=== PATIENT | male | born 1965 | race Caucasian/White ===

== ENCOUNTER 2017-01-09 10:53 | Emergency (ER) | payer OTHER ==
[~2017-01-09] VITALS: Ht 172.7 cm; Wt 67.6 kg
[~2017-01-09 10:53] MED LIST: DICY20TA11 PO; DRIS50002 PO; FISH100049 PO; GLUC1CAP9 PO; IRON65TA PO; LISI40TAB PO; METO50TA2 PO; OMEP40CA2 PO; SIMV40TA2 PO
[2017-01-09] MEDS ORDERED: BUSP10TA PO (11:23)
[2017-01-09] MEDS ORDERED: BUPR15TA PO (11:23)
[2017-01-09] MEDS ORDERED: GEMF600T PO (11:23)
--- NOTE | 2017-01-09 12:24 | REP ---
LEFT FOOT SERIES: Two views. HISTORY: Heel pain. No known injury. FINDINGS: There is some fragmented Achilles calcaneal spurring visible on lateral radiograph. No erosive change is seen. Bones joints and soft tissues are otherwise unremarkable. IMPRESSION: Achilles heel spurring. Otherwise negative. Signed by Theo Buenrostro MD 01/09/2017 12:50 P
[2017-01-09] MEDS ORDERED: INDO50CA PO (12:26)
[2017-01-09 12:32] VITALS: BP 132/75
== END 2017-01-09 12:42 | disposition home or self-care (01) ==
LOC: M ED 11:36
DX: M77.32 Calcaneal spur, left foot (principal); M65.272 Calcific tendinitis, left ankle and foot; Z88.8 Allergy status to other drugs, medicaments and biological substances; Z79.899 Other long term (current) drug therapy; J44.9 Chronic obstructive pulmonary disease, unspecified

== ENCOUNTER 2017-01-13 21:56 | Inpatient (IN) | payer OTHER ==
[~2017-01-13] VITALS: Ht 172.7 cm; Wt 68.0 kg
[~2017-01-13 21:56] MED LIST changes: +BUPR15TA PO; +BUSP10TA PO; +GEMF600T PO; +INDO50CA PO
[2017-01-13 23:34] LABS: BASO % 0.5 % (0.0-1.0); EOS # 0.1 K/mm3 (0.0-0.50); EOS % 2.9 % (0.0-3.0); LARGE UNSTAINED CELL # 0.1 K/mm3 (0.0-0.4); LARGE UNSTAINED CELL % 2.7 % (0.0-4.0); LYMPH # 1.4 K/mm3 (1.5-4.5); LYMPH % 27.9 % (24.0-44.0); MONO # 0.3 K/mm3 (0.0-0.8); MONO % 6.6 % (0.0-5.0); NEUTROPHILS # 2.7 K/mm3 (1.8-7.7); NEUTROPHILS % 59.4 % (36.0-66.0); PLATELET COUNT, AUTOMATED 201 k/mm3 (150-450); RED CELL DISTRIBUTION WIDTH 16.4 % (11.5-14.5); WHITE BLOOD COUNT 4.6 K/mm3 (4.0-10.0)
[2017-01-13 23:40] LABS: INR 0.97
[2017-01-13 23:47] LABS: ANION GAP 11 MEQ/L (8-16); BLOOD UREA NITROGEN 21 MG/DL (7-18); CALCIUM LEVEL 9.1 MG/DL (8.5-10.1); CARBON DIOXIDE LEVEL 24 MEQ/L (21-32); CHLORIDE LEVEL 106 MEQ/L (98-107); CREATININE FOR GFR 0.92 MG/DL (0.70-1.30); GLOMERULAR FILTRATION RATE > 60.0 (>56); GLUCOSE, FASTING 90 MG/DL (70-105); POTASSIUM SERUM 4.1 MEQ/L (3.5-5.1); SODIUM LEVEL 141 MEQ/L (136-145)
[2017-01-14 00:23] LABS: RETIC HEMOGLOBIN CONTENT CHr 38.2 PG (24-36); RETICULOCYTE ABSOLUTE ADVIA212 114 x10(9)/L (17-77)
[2017-01-14 00:35] LABS: ALBUMIN 3.9 GM/DL (3.2-5.2); ALKALINE PHOSPHATASE 66 U/L (45-117); ALT/SGPT 24 U/L (12-78); AST/SGOT 21 U/L (15-37); BILIRUBIN,DIRECT 0.1 MG/DL (0.0-0.2); BILIRUBIN,TOTAL 0.5 MG/DL (0.2-1.0); FERRITIN 786 NG/ML (26-388); PERCENT SATURATION 23.6 % (19.7-37.4); TOTAL IRON BINDING CAPACITY 377 UG/DL (250-450); TOTAL PROTEIN 6.9 GM/DL (6.4-8.2)
[2017-01-14] MEDS: PANTOPRAZOLE 40MG INJ (PROTONIX) (C9113) IV SCH ×2 (01:00→09:41)
[2017-01-14] MEDS: NS 1,000 ML IV SCH ×2 (01:00→06:13)
[2017-01-14] MEDS: SUCRALFATE 1 GM TAB PO SCH ×2 (01:00→06:13)
[2017-01-14] MEDS ORDERED: SUCRALFATE 1 GM TAB As Ordered ONE (01:10)
[2017-01-14] MEDS ORDERED: PANTOPRAZOLE 40MG INJ (PROTONIX) (C9113) As Ordered ONE (01:10)
[2017-01-14 02:45] VITALS: BP 113/66
[2017-01-14] MEDS ORDERED: LISI40TAB PO (04:14)
[2017-01-14] MEDS ORDERED: LORazepam 2 MG TAB PO PRN (04:15)
[2017-01-14] MEDS ORDERED: INDO50CA PO (04:18)
[2017-01-14] MEDS ORDERED: OXAZEPAM 10 MG CAP PO SCH (06:00)
[2017-01-14] MEDS ORDERED: OXAZEPAM 10 MG CAP PO PRN (07:00)
[2017-01-14] MEDS ORDERED: ACETAMINOPHEN TAB 650MG DOSE (2X325MG) PO PRN (07:00)
[2017-01-14] MEDS ORDERED: NS 500 ML IV ONE (07:00)
[2017-01-14 07:48] LABS: ANION GAP 9 MEQ/L (8-16); BLOOD UREA NITROGEN 16 MG/DL (7-18); CALCIUM LEVEL 8.7 MG/DL (8.5-10.1); CARBON DIOXIDE LEVEL 24 MEQ/L (21-32); CHLORIDE LEVEL 109 MEQ/L (98-107); CREATININE FOR GFR 0.69 MG/DL (0.70-1.30); GLOMERULAR FILTRATION RATE > 60.0 (>56); GLUCOSE, FASTING 93 MG/DL (70-105); POTASSIUM SERUM 4.2 MEQ/L (3.5-5.1); SODIUM LEVEL 142 MEQ/L (136-145)
[2017-01-14 07:51] LABS: BASO % 0.6 % (0.0-1.0); EOS # 0.2 K/mm3 (0.0-0.50); EOS % 3.3 % (0.0-3.0); LARGE UNSTAINED CELL # 0.1 K/mm3 (0.0-0.4); LARGE UNSTAINED CELL % 2.6 % (0.0-4.0); LYMPH # 1.5 K/mm3 (1.5-4.5); LYMPH % 29.2 % (24.0-44.0); MEAN CORPUSCULAR HEMOGLOBIN 35.4 pg (27.0-33.0); MEAN CORPUSCULAR HGB CONC 35.2 g/dl (32.0-36.5); MEAN CORPUSCULAR VOLUME 100.5 fl (80.0-96.0); MONO # 0.4 K/mm3 (0.0-0.8); MONO % 8.2 % (0.0-5.0); NEUTROPHILS # 2.8 K/mm3 (1.8-7.7); NEUTROPHILS % 56.1 % (36.0-66.0); PLATELET COUNT, AUTOMATED 188 k/mm3 (150-450); RED CELL DISTRIBUTION WIDTH 16.5 % (11.5-14.5)
[2017-01-14 08:00] VITALS: BP_SYST 113; BP_SYST 146; BP_DIAS 66; BP_DIAS 79
[2017-01-14] MEDS ORDERED: buPROPion **SR TABLET** (ZYBAN) 150MG PO SCH (09:00)
[2017-01-14] MEDS ORDERED: GEMFIBROZIL 600 MG TAB PO SCH (09:00)
[2017-01-14] MEDS ORDERED: THIAMINE 100 MG TAB PO SCH (09:00)
[2017-01-14] MEDS ORDERED: FERROUS SULFATE 325MG TAB PO SCH (09:00)
[2017-01-14] MEDS ORDERED: VITAMIN D 50,000 UNITS CAPSULE (ERGOCALCIFEROL 1.25MG) PO SCH (09:00)
[2017-01-14] MEDS ORDERED: FOLIC ACID 1 MG TAB PO SCH (09:00)
[2017-01-14] MEDS ORDERED: busPIRone 10 MG TAB PO SCH (09:00)
[2017-01-14] MEDS ORDERED: CYANOCOBALAMIN 500 MCG TAB PO SCH (09:00)
[2017-01-14] MEDS ORDERED: MULTIVITAMINS/MINERALS THERAP 1 TAB PO SCH (09:00)
[2017-01-14] MEDS ORDERED: METOPROLOL TART 12.5 MG PER 1/2 TAB PO SCH (09:00)
[2017-01-14 09:16] LABS: VITAMIN B12 LEVEL 358 PG/ML (247-911)
[2017-01-14 09:17] LABS: FOLATE 10.2 NG/ML (>5.4)
[2017-01-14 10:00] VITALS: BP 130/73
[2017-01-14 10:05] VITALS: BP 136/73
[2017-01-14 10:10] VITALS: BP 128/77
[2017-01-14 12:00] VITALS: BP 143/75
--- NOTE | 2017-01-15 09:35 | ED PDOC ---
Post-Departure Follow-Up This record was partially or completely completed on paper due to EMR downtime. Please see scanned documents. Bre Yao MD Jan 15, 2017 09:35
--- NOTE | 2017-01-15 12:24 | HPE ---
DATE OF ADMISSION: 01/14/2017 ADMITTING PHYSICIAN: Dr. Jadon Vidal CHIEF COMPLAINT: Blood in stool. HISTORY OF PRESENT ILLNESS: Mr. Salas is a 51-year-old male who presents the emergency department complaining of blood in his stool. He states that he has been complaining of a left heel bone spur and Achilles tendonitis for which he was prescribed indomethacin last Thursday. He states that he has been taking the medication as prescribed and then he noticed that he began to see blood in his toilet this morning. He does suffer from chronic diarrhea for which he has had multiple investigations including and upper and lower scope per Dr. Weber, therefore he began the blood mixed in with his diarrhea which has been present all day. He continues to have blood in his stool even when he is in the emergency department at this time. Other than this, he does not complain of any other symptoms. Specifically, he denies any shortness of breath, fatigue, orthostasis, claudication, palpitations, chest pressure or discomfort. He does admit to some mild transient abdominal pain. Occasionally when one provider will poke on his belly it will be tender; however, within the next 15-20 minutes this pain will go away. On my exam. He currently does not have any abdominal pain at this time. He denies any hematemesis or blood in sputum. He has no cough. He does not have epistaxis. He does state that in the past year he has been unable to take aspirin or fish oil as this will cause him to bruise very easily, even the slightest bump will make a bruise, but he denies ever having any blood in his urine or stool in the past. Of note, he does imbibe alcohol on a daily basis approximately 6-8 beers currently, although a couple years ago he used to drink almost 16-18 beers per day as well. He is also accompanied in the room by his daughter who provides some of the history. ALLERGIES: MELOXICAM and ALBUTEROL. PAST MEDICAL HISTORY: Hypertension, hypertriglyceridemia, chronic obstructive pulmonary disease (COPD) . He thinks he perhaps has obstructive sleep apnea but has never been diagnosed. gastroesophageal reflux disease (GERD), chronic diarrhea for which he has had multiple interventions with the ramp attendant and court abstractor. Hemorrhoids , degenerative disk disease in his entire spine, chronic back pain, chronic muscle pain, history of remote right ankle fracture. He states that he is a carrier for hemochromatosis. He does suffer from chronic anemia, anxiety, depression. SOCIAL HISTORY: He quit smoking approximately six years ago. As noted in the history of present illness (HPI), he drinks about 6-8 beers per day. However, just a couple years ago he was drinking 16-18 beers a day, therefore this is an improvement. He does admit to using marijuana on occasion; however, denies any other recreational or illicit drug use. PAST SURGICAL HISTORY: He has had two hernia operations, one as an , the other in the early . He did have his tonsils removed as a child. FAMILY HISTORY: His father suffered from diabetes mellitus type 2, hypertension, and from complications of the same at an age greater than 60, but he is not sure at what age. His mother in her 50s from a brain tumor; she also had breast cancer. He does have a half-sister and four daughters all of whom appear to be healthy. MEDICATION LIST: - bupropion 150 mg by mouth twice a day at 0600 at 0900 - buspirone 10 mg by mouth daily - gemfibrozil 600 mg by mouth twice a day - indomethacin (started approximately 3-4 days ago) 50 mg by mouth every eight hours as needed for left heel pain - iron 325 mg by mouth twice a day - lisinopril 40 mg by mouth daily - metoprolol tartrate 25 mg by mouth twice a day - omeprazole 40 mg by mouth daily - vitamin D 50,000 units one tablet by mouth twice a week on Sundays and Wednesdays - Optivar ophthalmic solution two drops both eyes four times a day as needed dry eye - vitamin B12 2000 mcg by mouth daily REVIEW OF SYSTEMS: CONSTITUTIONAL: The patient as any fevers, chills, night sweats, recent weight gain or weight loss. HEENT: Denies any changes in his vision or hearing. He does feel dry and thirsty, he has no difficulty swallowing, chewing or swallowing any foods. He denies having any epistaxis or lymphadenopathy. PULMONARY: Denies having any cough, dyspnea or wheeze. CARDIOVASCULAR: Denies any chest pain, palpitations, orthopnea, paroxysmal nocturnal dyspnea, swelling in the feet or legs or claudication. GASTROINTESTINAL: He denies any nausea or vomiting. He does admit to chronic constant diarrhea for which he has had many investigations without any solid etiology. He denies constipation. He does admit to bloody bowel movements as described in the HPI. He denies any hematochezia or hemoptysis. GENITOURINARY: He denies any frequency, urgency or dysuria and denies seeing any blood the urine. HEMATOLOGIC: Currently he denies any bruising or bleeding easily; however, he states that he is not able to take aspirin or fish oil as this will cause him to have easy bruising. He has not noticed any petechiae or purpura. ENDOCRINE: Denies polydipsia, polyphagia, polyuria. MUSCULOSKELETAL: He does admit to chronic back pain and muscle pains, but no new complaints. NEUROLOGICAL: He does complain of some slight tingling in his left ulnar distribution; otherwise, he denies any muscle strength weakness or any other kind of paresthesias or difficulty with speech or word finding. He has not noticed any facial droop. PSYCHIATRIC: He does admit to a history of anxiety and depression, although he is currently feeling well at this time. PHYSICAL EXAMINATION: VITALS: Temperature 98.2, pulse 101 regular, respiratory rate 18 and unlabored. Blood pressure is 176/79. Pulse oximetry is 100% on room air. HEENT: Head is normocephalic, atraumatic. Pupils equally reactive to light and accommodation. Sclerae nonicteric. Extraocular movements are intact. Cranial nerves II-XII are grossly intact. Hearing is grossly intact to conversation. Buccal mucosa is pink and moist with no lesions in the oropharynx. Dentition is adequate. There is no appreciable lymphadenopathy. RESPIRATORY: The lungs have a faint end-expiratory wheeze throughout; otherwise , they are clear to auscultation bilaterally with no rales or rhonchi. HEART: Regular rate and rhythm, perhaps slightly tachycardiac with no murmurs, rubs or gallops. ABDOMEN: Soft, nontender, nondistended with no appreciated hepatosplenomegaly. SKIN: No rashes, lumps, bumps or bruises that he can account for. No jaundice is noted. EXTREMITIES: Muscle tone was normal throughout. There is no evidence of clubbing, edema or cyanosis. PSYCHIATRIC: Mood and affect are with appropriate range, he responds to all questions appropriately. NEUROLOGICAL: Cranial nerves II-XII are grossly intact. He is able to move all four extremities, he speaks fluently with no difficulty with word finding or word substitution. TELEMETRY: No significant arrhythmia. He is in sinus rhythm, occasionally he is somewhat tachycardic. LABORATORY DATA: WBC 4.6, hemoglobin 12.0, hematocrit 35.4, platelets 201. Sodium 141, potassium 4.1, chloride 106, carbon dioxide 24 with an anion gap of 11, BUN 21, creatinine 0.92 with a GFR greater than 60, fasting glucose is 90, calcium 9.1. Iron 89, TIBC 377, transferrin percent saturation 23.6, ferritin 786. Total bilirubin 0.5 , direct bilirubin 0.1, AST 21, ALT 24, alkaline phosphatase 66. Total creatinine kinase 152, CK-MB 3.3, CK-MB relative index 2.17. Troponin I less than 0.02. Total protein 6.9, albumin 3.9, albumin/globulin ratio 1.30. Vitamin B12 and folate are currently pending. Ethyl alcohol level 0.113. PT 13.0, INR 0.97, APTT is 27.0. ASSESSMENT: 1. Gastrointestinal (GI) bleed secondary to non-steroidal anti-inflammatory drugs (NSAIDS) use. 2. Chronic alcoholism, he currently takes 6-8 beers per day. 3. Hypertension. 4. Hypertriglyceridemia. 5. Gastroesophageal reflux disease. 6. Chronic diarrhea. 7. History of hemorrhoids. 8. History of chronic back pain with degenerative joint disease (DJD). 9. History of anemia. 10. Anxiety. 11. Depression. 12. Deep venous thrombosis (DVT) prophylaxis. PLAN: Will admit the patient to progressive care unit (PCU) under the care of Dr. Parrish who will take over his care at 7:00 a.m. As the patient does have an elevated BUN and creatinine ratio and he is feeling quite dry, we will start him on normal saline, we will also give him Carafate and Protonix for GI prophylaxis, and we will also check his hemoglobin and hematocrit (H and H) every six hours. B12 and folate levels are pending. Iron studies do not indicate an iron deficiency anemia this time, although he is currently taking iron supplements. We will do a type and screen, and he has already been consented to receive blood products if necessary. Currently his vital signs are holding up well, he is asymptomatic, and therefore he does not need an immediate transfusion at this time. We will hold his lisinopril at this time and we will also cut his metoprolol tartrate dose in half to 12.5 at this time. The remainder of his medications for his chronic conditions we will continue, which are the multivitamin, iron, gemfibrozil, BuSpar, Wellbutrin, and vitamin D. We will also discontinue his omeprazole at this time as it will be replaced with intravenous (IV) Protonix while inpatient. We will also cycle his cardiac marker panel, initial troponins were negative, but we will check an additional two of these every eight hours. Will also do repeat labs in the morning. Stool for occult blood will also be performed. DVT prophylaxis will be achieved with antiembolic stockings and sequentials. As the patient is currently bleeding, we will also keep him nothing by mouth at this time. I also recommend that if he continues to bleed, he may benefit from a GI consult in the morning. I have both independently examined this patient as well as reviewed the dictated note. I have discussed in detail with the resident the findings and plan of treatment as documented in the residents note. I will continue to follow the patient and offer further guidance to the patients care as necessary during this hospital stay. Will need to monitor for possible alcohol withdrawal. GOSIA
== END 2017-01-14 17:00 | disposition left against medical advice (07) | DRG 254 ==
LOC: M ED 23:03 → M ED INP 01-14 00:01
PROVIDERS: ADMIT Internal Medicine; ATTEND Internal Medicine
DX: K92.1 Melena (principal); J44.9 Chronic obstructive pulmonary disease, unspecified; I10 Essential (primary) hypertension; T39.2X5A Adverse effect of pyrazolone derivatives, initial encounter; F10.20 Alcohol dependence, uncomplicated; Z88.8 Allergy status to other drugs, medicaments and biological substances; K21.9 Gastro-esophageal reflux disease without esophagitis; R19.7 Diarrhea, unspecified; Z79.899 Other long term (current) drug therapy; M51.36 Other intervertebral disc degeneration, lumbar region; E78.1 Pure hyperglyceridemia

== ENCOUNTER → 2017-02-20 | Outpatient (CLI) | payer OTHER ==
[~2017-02-20] VITALS: Ht 172.7 cm; Wt 64.9 kg
[~2017-02-20] MED LIST changes: +IRON325T7 PO; +LIDOCAINE 2% INJ 100 MG/5 ML SDV (FOR ANES.) As Ordered ONE; +MULTTAB22 PO; +NS 1,000 ML IV ONE; +PROPOFOL 200 MG/20 ML VIAL As Ordered ONE; +VITA-5 PO
--- NOTE | 2017-02-20 12:12 | ROOR ---
Patient Name: Alok Salas Procedure Date: 02/20/2017 11:57 AM Date of : 1965 Age: 51 Room: [facility] Gender: Male Note Status: Finalized Procedure: Upper GI endoscopy Indications: Acute post hemorrhagic anemia Providers: Jadon WEBER MD Referring MD: BELLA ESPINAL NP Requesting Provider: Medicines: Monitored Anesthesia Care Complications: No immediate complications. Procedure: Pre-Anesthesia Assessment: - The heart rate, respiratory rate, oxygen saturations, blood pressure, adequacy of pulmonary ventilation, and response to care were monitored throughout the procedure. The Endoscope was introduced through the mouth, and advanced to the second part of duodenum. The upper GI endoscopy was accomplished without difficulty. The patient tolerated the procedure well. Findings: A non-bleeding Zenker's diverticulum (or possibly stricture) in proximal esophagus, with a small opening, no impacted food and no stigmata of recent bleeding was found. The examined esophagus was otherwise normal. The entire examined stomach was normal. The examined duodenum was normal. Impression: - Zenker's diverticulum (vs moderate stricture) in cricopharyngeal area of esophagus. - Normal esophagus. - Normal stomach. - Normal examined duodenum. - No specimens collected. Recommendation: - Do an upper GI series. Jadon Weber MD Jadon WEBER MD 02/20/2017 12:12:26 PM This report has been signed electronically. Number of Addenda: 0 Note Initiated On: 02/20/2017 11:57 AM Estimated Blood Loss: Estimated blood loss: none.
--- NOTE | 2017-02-20 12:35 | ROOR ---
Patient Name: Alok Salas Procedure Date: 02/20/2017 11:57 AM Date of : 1965 Age: 51 Room: [facility] Gender: Male Note Status: Finalized Procedure: Colonoscopy Indications: Acute post hemorrhagic anemia Providers: Jadon WEBER MD Referring MD: BELLA ESPINAL NP Requesting Provider: Medicines: Monitored Anesthesia Care Complications: No immediate complications. Procedure: Pre-Anesthesia Assessment: - The heart rate, respiratory rate, oxygen saturations, blood pressure, adequacy of pulmonary ventilation, and response to care were monitored throughout the procedure. The Colonoscope was introduced through the anus and advanced to 8 cm into the ileum. The colonoscopy was performed without difficulty. The patient tolerated the procedure well. The quality of the bowel preparation was good. Findings: The perianal and digital rectal examinations were normal. (Exam: Complete, Prep: Good or Excellent.) The terminal ileum contained three localized non-bleeding erosions. No stigmata of recent bleeding were seen. This was biopsied with a cold forceps for histology. The colon (entire examined portion) appeared normal. Small Internal Hemorrhoids. Impression: - Three erosions in the last 2-3 cm of terminal ileum. Biopsied--r/o acute/NSAID vs chronic/IBD. - The entire colon is normal. - Small Internal Hemorrhoids. Recommendation: - No ibuprofen, naproxen, or other non-steroidal anti-inflammatory drugs. - Telephone endoscopist for pathology results in 2 weeks. - You are/will be scheduled for a small bowel study and a barium swallow. Please complete these exams as scheduled. Call me for results 2 weeks after completion. Jadon Weber MD Jadon WEBER MD 02/20/2017 12:34:32 PM This report has been signed electronically. Number of Addenda: 0 Note Initiated On: 02/20/2017 11:57 AM Estimated Blood Loss: Estimated blood loss: none.
[2017-02-20 12:50] VITALS: BP 146/72
== END | disposition home or self-care (01) ==
LOC: M OPP 10:40
PROVIDERS: ATTEND Internal Medicine Gastroenterology
DX: D62 Acute posthemorrhagic anemia (principal); K62.5 Hemorrhage of anus and rectum; R10.13 Epigastric pain; R19.7 Diarrhea, unspecified; K63.3 Ulcer of intestine; K22.5 Diverticulum of esophagus, acquired; K64.8 Other hemorrhoids; I10 Essential (primary) hypertension; E78.2 Mixed hyperlipidemia; Z87.19 Personal history of other diseases of the digestive system; R12 Heartburn; R23.3 Spontaneous ecchymoses; M19.90 Unspecified osteoarthritis, unspecified site; M51.9 Unspecified thoracic, thoracolumbar and lumbosacral intervertebral disc disorder; F41.9 Anxiety disorder, unspecified; F32.9 Major depressive disorder, single episode, unspecified; G62.9 Polyneuropathy, unspecified; J44.9 Chronic obstructive pulmonary disease, unspecified; R06.83 Snoring; Z87.891 Personal history of nicotine dependence; Z88.8 Allergy status to other drugs, medicaments and biological substances; Z79.899 Other long term (current) drug therapy; Z80.3 Family history of malignant neoplasm of breast; Z80.8 Family history of malignant neoplasm of other organs or systems

== ENCOUNTER → 2017-02-24 | Outpatient (CLI) | payer OTHER ==
[~2017-02-24] MED LIST changes: -LIDOCAINE 2% INJ 100 MG/5 ML SDV (FOR ANES.) As Ordered ONE; -NS 1,000 ML IV ONE; -PROPOFOL 200 MG/20 ML VIAL As Ordered ONE
[2017-02-24 14:13] LABS: COMPLEMENT C4 25.5 MG/DL (10-40); IMMUNOGLOBULIN M 77.1 MG/DL (40-230)
[2017-02-26 14:18] LABS: ALPHA 1 ANTITRYPSIN 109 mg/dL (90-200); D001-IgE D pteronyssinus <0.10 kU/L (Class 0); E001-IgE Cat Epith/Dander < 0.10 kU/L (Class 0); E005-IgE Dog Dander < 0.10 kU/L (Class 0); F002-IgE Milk < 0.10 kU/L (Class 0); F004-IgE Wheat < 0.10 kU/L (Class 0); F013-IgE Peanut < 0.10 kU/L (Class 0); F014-IgE Soybean < 0.10 kU/L (Class 0); F026-IgE Pork < 0.10 kU/L (Class 0); F027-IgE Beef < 0.10 kU/L (Class 0); F245-IgE Egg, Whole < 0.10 kU/L (Class 0); FX02-IgE Food Mix (Sea Foods) Negative (.); G002-IgE Bermuda Grass < 0.10 kU/L (Class 0); G008-IgE Kentucky Bluegrass < 0.10 kU/L (Class 0); M001-IgE Penicillium chrysogen < 0.10 kU/L (Class 0); M002 IgE Cladosporium herbaru < 0.10 kU/L (Class 0); M003 IgE Aspergillus fumigatu < 0.10 kU/L (Class 0); M006-IgE Alternaria alternata < 0.10 kU/L (Class 0); T001-IgE Maple/Box Elder < 0.10 kU/L (Class 0); T003-IgE Common Silver Birch < 0.10 kU/L (Class 0); T007-IgE Oak, White < 0.10 kU/L (Class 0); T008-IgE Elm, American < 0.10 kU/L (Class 0); T015-IgE Ash, White < 0.10 kU/L (Class 0); T041-IgE Hickory, White < 0.10 kU/L (Class 0); W001-IgE Ragweed, Short < 0.10 kU/L (Class 0); W009-IgE Plantain, English < 0.10 kU/L (Class 0); W014-IgE Pigweed, Rough < 0.10 kU/L (Class 0); W018-IgE Sheep Sorrel < 0.10 kU/L (Class 0)
== END ==
LOC: M WUC 10:18
PROVIDERS: ATTEND Allergy & Immunology
DX: J44.9 Chronic obstructive pulmonary disease, unspecified (principal); J30.2 Other seasonal allergic rhinitis; J32.0 Chronic maxillary sinusitis; K21.9 Gastro-esophageal reflux disease without esophagitis

== ENCOUNTER → 2017-03-03 | Outpatient (CLI) | payer OTHER ==
--- NOTE | 2017-03-04 09:21 | REP ---
SMALL BOWEL FOLLOW THROUGH: The procedure was performed under the direct supervision of Dr. Childs. The images were reviewed with Dr. Childs. The owner/operator film shows no organomegaly or pathological masses. The intestinal gas pattern is nonspecific. Liquid barium was administered and the barium column was followed through the small bowel to the level of the terminal ileum. Small bowel transit time is approximately one hour. During fluoroscopy gentle palpation shows all loops are freely moveable and pliable. There are no fixed or angulated loops. The small bowel mucosal pattern is normal in course and caliber. There is no transition to suggest a partial small bowel obstruction. Spot filming of the terminal ileum shows it to be unremarkable. IMPRESSION: Small bowel follow through examination within normal limits. 1 minute and 16 seconds of fluoroscopy time was utilized for this procedure. Reviewed by CATHY Mota 03/04/2017 04:32 PEdited and Signed by Amadou Childs MD 03/04/2017 07:52 P
== END ==
LOC: M RAD 09:26
PROVIDERS: ATTEND Physician Assistant Medical
DX: K62.5 Hemorrhage of anus and rectum (principal); R19.7 Diarrhea, unspecified; D50.9 Iron deficiency anemia, unspecified

== ENCOUNTER → 2017-03-03 | Outpatient (CLI) | payer OTHER ==
[~2017-03-03] MED LIST changes: +E-Z-GAS II EFFERVESCENT PACKET (SODIUM BICARB./CITRIC ACID/SIMETHICONE) As Ordered ONE; +E-Z-HD 98% w/w 340GM SUSP BTL As Ordered ONE; +E-Z-PAQUE 96% w/w SUSP 176GM BTL As Ordered ONE
--- NOTE | 2017-03-04 09:17 | REP ---
ESOPHAGRAM, AIR CONTRAST: The procedure was performed under the direct supervision of Dr. Childs. The images were reviewed with Dr. Childs. A single view PA chest x-ray submitted as a coldfusion film. The superior mediastinal structures are midline. The heart size is within normal limits. The lungs are clear. Liquid barium and gas producing granules are given in the erect position as well as liquid barium in the prone oblique positions in order to perform a double contrast esophagram examination. The oral and pharyngeal stages of deglutition are unremarkable. Esophageal transport is prompt and efficient and there is no esophagitis, stricture, mucosal ring or hiatal hernia. Gastroesophageal reflux is not demonstrated on this examination. IMPRESSION: Essentially unremarkable double contrast examination. Reviewed by CATHY Mota 03/04/2017 04:32 PEdited and Signed by Amadou Childs MD 03/04/2017 07:52 P
== END ==
LOC: M RAD 09:28
PROVIDERS: ATTEND Internal Medicine Gastroenterology
DX: K22.5 Diverticulum of esophagus, acquired (principal); K22.2 Esophageal obstruction

== ENCOUNTER → 2017-03-10 | Outpatient (CLI) | payer OTHER ==
[~2017-03-10] MED LIST changes: -E-Z-GAS II EFFERVESCENT PACKET (SODIUM BICARB./CITRIC ACID/SIMETHICONE) As Ordered ONE; -E-Z-HD 98% w/w 340GM SUSP BTL As Ordered ONE; -E-Z-PAQUE 96% w/w SUSP 176GM BTL As Ordered ONE
[2017-03-10 14:53] LABS: BASO % 0.7 % (0.0-1.0); EOS # 0.1 K/mm3 (0.0-0.50); EOS % 2.2 % (0.0-3.0); LYMPH # 0.8 K/mm3 (1.5-4.5); LYMPH % 15.5 % (24.0-44.0); MEAN CORPUSCULAR HEMOGLOBIN 35.6 pg (27.0-33.0); MEAN CORPUSCULAR HGB CONC 35.1 g/dl (32.0-36.5); MEAN CORPUSCULAR VOLUME 101.3 fl (80.0-96.0); MONO # 0.4 K/mm3 (0.0-0.8); MONO % 7.7 % (0.0-5.0); NEUTROPHILS # 3.3 K/mm3 (1.8-7.7); NEUTROPHILS % 71.7 % (36.0-66.0); RED CELL DISTRIBUTION WIDTH 16.3 % (11.5-14.5); WHITE BLOOD COUNT 4.6 K/mm3 (4.0-10.0)
[2017-03-10 15:04] LABS: ALBUMIN 3.7 GM/DL (3.2-5.2); ALBUMIN/GLOBULIN RATIO 1.32 (1.00-1.93); ALKALINE PHOSPHATASE 66 U/L (45-117); ALT/SGPT 28 U/L (12-78); ANION GAP 9 MEQ/L (8-16); AST/SGOT 22 U/L (15-37); BILIRUBIN,TOTAL 0.3 MG/DL (0.2-1.0); BLOOD UREA NITROGEN 10 MG/DL (7-18); CALCIUM LEVEL 8.8 MG/DL (8.5-10.1); CARBON DIOXIDE LEVEL 25 MEQ/L (21-32); CHLORIDE LEVEL 106 MEQ/L (98-107); CHOLESTEROL LEVEL 210 MG/DL (<200); CREATININE FOR GFR 0.71 MG/DL (0.70-1.30); FREE T4 0.92 NG/DL (0.76-1.46); GLOMERULAR FILTRATION RATE > 60.0 (>56); GLUCOSE, FASTING 95 MG/DL (70-105); POTASSIUM SERUM 4.3 MEQ/L (3.5-5.1); SODIUM LEVEL 140 MEQ/L (136-145); TOTAL PROTEIN 6.5 GM/DL (6.4-8.2); TRIGLYCERIDES LEVEL 626 MG/DL (<150)
== END ==
LOC: M WUC 09:20
PROVIDERS: ATTEND Nurse Practitioner Adult Health
DX: E78.1 Pure hyperglyceridemia (principal)

== ENCOUNTER → 2017-05-27 | Outpatient (CLI) | payer OTHER ==
[~2017-05-27] MED LIST changes: -METO50TA2 PO; +METO50TA7 PO
[2017-05-27 19:53] LABS: BASO % 0.6 % (0.0-1.0); EOS # 0.1 K/mm3 (0.0-0.50); LYMPH % 21.6 % (24.0-44.0); MEAN CORPUSCULAR HEMOGLOBIN 34.4 pg (27.0-33.0); MEAN CORPUSCULAR HGB CONC 33.4 g/dl (32.0-36.5); MEAN CORPUSCULAR VOLUME 103.1 fl (80.0-96.0); MONO # 0.4 K/mm3 (0.0-0.8); MONO % 10.2 % (0.0-5.0); NEUTROPHILS # 2.7 K/mm3 (1.8-7.7); NEUTROPHILS % 63.5 % (36.0-66.0); RED CELL DISTRIBUTION WIDTH 16.9 % (11.5-14.5); WHITE BLOOD COUNT 4.2 K/mm3 (4.0-10.0)
[2017-05-27 20:28] LABS: ALBUMIN 4.1 GM/DL (3.2-5.2); ALBUMIN/GLOBULIN RATIO 1.46 (1.00-1.93); ALKALINE PHOSPHATASE 62 U/L (45-117); ALT/SGPT 29 U/L (12-78); ANION GAP 14 MEQ/L (8-16); AST/SGOT 18 U/L (15-37); BILIRUBIN,TOTAL 0.5 MG/DL (0.2-1.0); BLOOD UREA NITROGEN 13 MG/DL (7-18); CALCIUM LEVEL 8.9 MG/DL (8.5-10.1); CARBON DIOXIDE LEVEL 24 MEQ/L (21-32); CHLORIDE LEVEL 106 MEQ/L (98-107); CHOLESTEROL LEVEL 176 MG/DL (<200); CREATININE FOR GFR 0.62 MG/DL (0.70-1.30); FREE T4 0.85 NG/DL (0.76-1.46); GLOMERULAR FILTRATION RATE > 60.0 (>56); GLUCOSE, FASTING 81 MG/DL (70-105); POTASSIUM SERUM 3.7 MEQ/L (3.5-5.1); SODIUM LEVEL 144 MEQ/L (136-145); TOTAL PROTEIN 6.9 GM/DL (6.4-8.2); TRIGLYCERIDES LEVEL 152 MG/DL (<150)
== END ==
LOC: M WUC 14:59
PROVIDERS: ATTEND Nurse Practitioner Adult Health
DX: K62.5 Hemorrhage of anus and rectum (principal); D64.9 Anemia, unspecified; Z79.899 Other long term (current) drug therapy; R74.8 Abnormal levels of other serum enzymes; E78.1 Pure hyperglyceridemia; E55.9 Vitamin D deficiency, unspecified

== ENCOUNTER → 2017-09-30 | Outpatient (CLI) | payer OTHER ==
[2017-09-30 18:21] LABS: BASO # 0.1 10^3/uL (0.0-0.2); BASO % 0.9 % (0.0-1.0); EOS # 0.1 10^3/uL (0.0-0.50); EOS % 1.4 % (0.0-3.0); HEMATOCRIT 37.4 % (42.0-52.0); HEMOGLOBIN 12.9 g/dl (14.0-18.0); IMMATURE GRANULOCYTE # 0.1 10^3/uL (0-0); IMMATURE GRANULOCYTE % 1.1 % (0-0); LYMPH # 1.1 10^3/uL (1.5-4.5); LYMPH % 19.4 % (24.0-44.0); MEAN CORPUSCULAR HEMOGLOBIN 34.4 pg (27.0-33.0); MEAN CORPUSCULAR HGB CONC 34.5 g/dl (32.0-36.5); MEAN CORPUSCULAR VOLUME 99.7 fl (80.0-96.0); MONO # 0.6 10^3/uL (0.0-0.8); MONO % 11.3 % (0.0-5.0); NEUTROPHILS # 3.7 10^3/uL (1.8-7.7); NEUTROPHILS % 65.9 % (36.0-66.0); PLATELET COUNT, AUTOMATED 191 10^3/uL (150-450); RED BLOOD COUNT 3.75 10^6/uL (4.30-6.10); RED CELL DISTRIBUTION WIDTH 14.4 % (11.5-14.5); WHITE BLOOD COUNT 5.7 10^3/uL (4.0-10.0)
[2017-09-30 20:00] LABS: IRON (FE) 164 UG/DL (65-175); PERCENT SATURATION 47.3 % (19.7-50.0); TOTAL IRON BINDING CAPACITY 347 UG/DL (250-450)
== END ==
LOC: M WUC 15:20
DX: D50.9 Iron deficiency anemia, unspecified (principal)
CPT/HCPCS: 83550

== ENCOUNTER 2017-10-05 07:28 | Emergency (ER) | payer OTHER ==
[2017-10-05] MEDS: PERCOCET 5MG/325MG TAB PO (09:08)
== END 2017-10-05 10:08 | disposition home or self-care (01) ==
LOC: M ED 07:28
DX: S22.32XA Fracture of one rib, left side, initial encounter for closed fracture (principal); W00.9XXA Unspecified fall due to ice and snow, initial encounter; Y92.410 Unspecified street and highway as the place of occurrence of the external cause; I10 Essential (primary) hypertension; J44.9 Chronic obstructive pulmonary disease, unspecified; G47.33 Obstructive sleep apnea (adult) (pediatric); K21.9 Gastro-esophageal reflux disease without esophagitis; E78.70 Disorder of bile acid and cholesterol metabolism, unspecified; Z79.899 Other long term (current) drug therapy; Z88.1 Allergy status to other antibiotic agents; Z88.8 Allergy status to other drugs, medicaments and biological substances; Z87.891 Personal history of nicotine dependence
CPT/HCPCS: 71101

== ENCOUNTER → 2017-12-07 | Outpatient (CLI) | payer OTHER ==
[2017-12-07 17:16] LABS: ALBUMIN 3.6 GM/DL (3.2-5.2); ALBUMIN/GLOBULIN RATIO 1.16 (1.00-1.93); ALKALINE PHOSPHATASE 86 U/L (45-117); ALT/SGPT 27 U/L (12-78); ANION GAP 12 MEQ/L (8-16); AST/SGOT 23 U/L (7-37); BILIRUBIN,TOTAL 0.4 MG/DL (0.2-1.0); BLOOD UREA NITROGEN 13 MG/DL (7-18); CALCIUM LEVEL 8.4 MG/DL (8.5-10.1); CARBON DIOXIDE LEVEL 24 MEQ/L (21-32); CHLORIDE LEVEL 102 MEQ/L (98-107); CHOLESTEROL LEVEL 178 MG/DL (<200); CHOLESTEROL RISK RATIO 4.684 (<5); CREATININE FOR GFR 0.68 MG/DL (0.70-1.30); FERRITIN 874 NG/ML (26-388); GLOMERULAR FILTRATION RATE > 60.0 (>56); GLUCOSE, FASTING 91 MG/DL (70-100); HDL CHOLESTEROL 38 MG/DL (>40); IRON (FE) 112 UG/DL (65-175); NON-HDL-C 140 MG/DL; PERCENT SATURATION 34.7 % (19.7-50.0); POTASSIUM SERUM 3.7 MEQ/L (3.5-5.1); SODIUM LEVEL 138 MEQ/L (136-145); THYROID STIMULATING HORMONE 0.732 uIU/ML (0.358-3.740); TOTAL IRON BINDING CAPACITY 323 UG/DL (250-450); TOTAL PROTEIN 6.7 GM/DL (6.4-8.2); TRIGLYCERIDES LEVEL 704 MG/DL (<150)
[2017-12-07 17:26] LABS: BASO % 0.9 % (0.0-1.0); EOS # 0.1 10^3/uL (0.0-0.50); EOS % 1.8 % (0.0-3.0); HEMOGLOBIN 11.7 g/dl (14.0-18.0); IMMATURE GRANULOCYTE % 0.9 % (0-3.0); LYMPH # 0.7 10^3/uL (1.5-4.5); LYMPH % 16.6 % (24.0-44.0); MEAN CORPUSCULAR HEMOGLOBIN 34.3 pg (27.0-33.0); MEAN CORPUSCULAR HGB CONC 34.4 g/dl (32.0-36.5); MEAN CORPUSCULAR VOLUME 99.7 fl (80.0-96.0); MONO # 0.8 10^3/uL (0.0-0.8); MONO % 18.9 % (0.0-5.0); NEUTROPHILS # 2.6 10^3/uL (1.8-7.7); NEUTROPHILS % 60.9 % (36.0-66.0); PLATELET COUNT, AUTOMATED 153 10^3/uL (150-450); RED BLOOD COUNT 3.41 10^6/uL (4.30-6.10); RED CELL DISTRIBUTION WIDTH 14.5 % (11.5-14.5); WHITE BLOOD COUNT 4.3 10^3/uL (4.0-10.0)
[2017-12-07 19:05] LABS: ESTIMATED AVERAGE GLUCOSE 82 MG/DL (60-110); HEMOGLOBIN A1c 4.5 %
== END ==
LOC: M WUC 12:17
DX: Z79.899 Other long term (current) drug therapy (principal); D64.9 Anemia, unspecified; E55.9 Vitamin D deficiency, unspecified
CPT/HCPCS: 83550

== ENCOUNTER → 2018-01-22 | Outpatient (CLI) | payer OTHER ==
[2018-01-22 17:01] LABS: FERRITIN 703 NG/ML (26-388)
== END ==
LOC: M WUC 13:36
DX: R77.8 Other specified abnormalities of plasma proteins (principal); F10.20 Alcohol dependence, uncomplicated; E83.118 Other hemochromatosis
CPT/HCPCS: 82728

== ENCOUNTER → 2018-03-11 | Outpatient (CLI) | payer OTHER ==
[2018-03-11 12:55] LABS: BASO % 0.7 % (0.0-1.0); EOS # 0.1 10^3/uL (0.0-0.50); EOS % 1.7 % (0.0-3.0); HEMATOCRIT 35.5 % (42.0-52.0); HEMOGLOBIN 12.6 g/dl (13.5-17.5); LYMPH % 23.9 % (24.0-44.0); MEAN CORPUSCULAR HEMOGLOBIN 35.4 pg (27.0-33.0); MEAN CORPUSCULAR HGB CONC 35.5 g/dl (32.0-36.5); MEAN CORPUSCULAR VOLUME 99.7 fl (80.0-96.0); MONO # 0.6 10^3/uL (0.0-0.8); MONO % 14.5 % (0.0-5.0); NEUTROPHILS # 2.3 10^3/uL (1.8-7.7); NEUTROPHILS % 58.2 % (36.0-66.0); PLATELET COUNT, AUTOMATED 156 10^3/uL (150-450); RED BLOOD COUNT 3.56 10^6/uL (4.30-6.10); RED CELL DISTRIBUTION WIDTH 13.3 % (11.5-14.5)
[2018-03-11 13:22] LABS: ALBUMIN 3.9 GM/DL (3.2-5.2); ALBUMIN/GLOBULIN RATIO 1.34 (1.00-1.93); ALKALINE PHOSPHATASE 51 U/L (45-117); ALT/SGPT 26 U/L (12-78); ANION GAP 10 MEQ/L (8-16); AST/SGOT 16 U/L (7-37); BILIRUBIN,TOTAL 0.4 MG/DL (0.2-1.0); BLOOD UREA NITROGEN 20 MG/DL (7-18); CARBON DIOXIDE LEVEL 29 MEQ/L (21-32); CHLORIDE LEVEL 102 MEQ/L (98-107); CHOLESTEROL LEVEL 173 MG/DL (<200); CHOLESTEROL RISK RATIO 3.392 (<5); CREATININE FOR GFR 0.63 MG/DL (0.70-1.30); FERRITIN 659 NG/ML (26-388); FREE T4 0.82 NG/DL (0.76-1.46); GLOMERULAR FILTRATION RATE > 60.0 (>56); GLUCOSE, FASTING 94 MG/DL (70-100); HDL CHOLESTEROL 51 MG/DL (>40); IRON (FE) 122 UG/DL (65-175); MAGNESIUM LEVEL 1.8 MG/DL (1.8-2.4); NON-HDL-C 122 MG/DL; PERCENT SATURATION 37.8 % (19.7-50.0); POTASSIUM SERUM 4.5 MEQ/L (3.5-5.1); SODIUM LEVEL 141 MEQ/L (136-145); TOTAL IRON BINDING CAPACITY 323 UG/DL (250-450); TOTAL PROTEIN 6.8 GM/DL (6.4-8.2); TRIGLYCERIDES LEVEL 215 MG/DL (<150)
[2018-03-11 13:28] LABS: TOTAL 25(OH) VITAMIN D 64.6 NG/ML (30.0-100.0); VITAMIN B12 LEVEL 460 PG/ML
[2018-03-11 13:29] LABS: FOLATE > 24.0 NG/ML
== END ==
LOC: M WUC 10:34
DX: E78.1 Pure hyperglyceridemia (principal)
CPT/HCPCS: 82746

== ENCOUNTER → 2018-06-09 | Outpatient (CLI) | payer OTHER ==
[2018-06-09 18:29] LABS: BASO % 1.1 % (0.0-1.0); EOS # 0.1 10^3/uL (0.0-0.50); EOS % 1.6 % (0.0-3.0); HEMATOCRIT 35.6 % (42.0-52.0); HEMOGLOBIN 12.5 g/dl (13.5-17.5); IMMATURE GRANULOCYTE % 1.1 % (0-3.0); LYMPH % 25.5 % (24.0-44.0); MEAN CORPUSCULAR HEMOGLOBIN 34.9 pg (27.0-33.0); MEAN CORPUSCULAR HGB CONC 35.1 g/dl (32.0-36.5); MEAN CORPUSCULAR VOLUME 99.4 fl (80.0-96.0); MONO # 0.5 10^3/uL (0.0-0.8); MONO % 12.1 % (0.0-5.0); NEUTROPHILS # 2.2 10^3/uL (1.8-7.7); NEUTROPHILS % 58.6 % (36.0-66.0); PLATELET COUNT, AUTOMATED 141 10^3/uL (150-450); RED BLOOD COUNT 3.58 10^6/uL (4.30-6.10); WHITE BLOOD COUNT 3.7 10^3/uL (4.0-10.0)
[2018-06-09 20:31] LABS: ALBUMIN 4.4 GM/DL (3.2-5.2); ALBUMIN/GLOBULIN RATIO 1.52 (1.00-1.93); ALKALINE PHOSPHATASE 55 U/L (45-117); ALT/SGPT 29 U/L (12-78); ANION GAP 12 MEQ/L (8-16); AST/SGOT 27 U/L (7-37); BLOOD UREA NITROGEN 18 MG/DL (7-18); CALCIUM LEVEL 9.4 MG/DL (8.5-10.1); CARBON DIOXIDE LEVEL 24 MEQ/L (21-32); CHLORIDE LEVEL 103 MEQ/L (98-107); CHOLESTEROL LEVEL 164 MG/DL (<200); CHOLESTEROL RISK RATIO 2.562 (<5); CREATININE FOR GFR 0.72 MG/DL (0.70-1.30); FERRITIN 828 NG/ML (26-388); GLOMERULAR FILTRATION RATE > 60.0 (>56); GLUCOSE, FASTING 68 MG/DL (70-100); HDL CHOLESTEROL 64 MG/DL (>40); IRON (FE) 227 UG/DL (65-175); LDL CHOLESTEROL 65 MG/DL (<100); NON-HDL-C 100 MG/DL; POTASSIUM SERUM 3.8 MEQ/L (3.5-5.1); SODIUM LEVEL 139 MEQ/L (136-145); THYROID STIMULATING HORMONE 0.775 uIU/ML (0.358-3.740); THYROXINE (T4) 6.6 UG/DL (4.5-12.0); TOTAL 25(OH) VITAMIN D 90.8 NG/ML (30.0-100.0); TOTAL PROTEIN 7.3 GM/DL (6.4-8.2); TRIGLYCERIDES LEVEL 173 MG/DL (<150)
[2018-06-09 21:44] LABS: ESTIMATED AVERAGE GLUCOSE 82 MG/DL (60-110); HEMOGLOBIN A1c 4.5 %
== END ==
LOC: M WUC 13:49
DX: E78.2 Mixed hyperlipidemia (principal); E03.9 Hypothyroidism, unspecified; E11.65 Type 2 diabetes mellitus with hyperglycemia; D64.9 Anemia, unspecified
CPT/HCPCS: 83540

== ENCOUNTER → 2018-07-09 | Outpatient (CLI) | payer OTHER | LOC: M WUC 10:12 | DX: S43.422D Sprain of left rotator cuff capsule, subsequent encounter (principal) | CPT/HCPCS: 73030 ==

== ENCOUNTER → 2018-07-23 | Outpatient (CLI) | payer OTHER | LOC: M RAD 16:21 | DX: M75.52 Bursitis of left shoulder (principal) ==

== ENCOUNTER → 2018-08-20 | Outpatient (CLI) | payer OTHER ==
[2018-08-20 15:13] LABS: ALBUMIN 3.5 GM/DL (3.2-5.2); ANION GAP 9 MEQ/L (8-16); BLOOD UREA NITROGEN 17 MG/DL (7-18); CALCIUM LEVEL 8.8 MG/DL (8.5-10.1); CARBON DIOXIDE LEVEL 28 MEQ/L (21-32); CHLORIDE LEVEL 103 MEQ/L (98-107); CREATININE FOR GFR 0.62 MG/DL (0.70-1.30); GLOMERULAR FILTRATION RATE > 60.0 (>56); GLUCOSE, FASTING 85 MG/DL (70-100); PHOSPHORUS LEVEL 3.3 MG/DL (2.5-4.9); POTASSIUM SERUM 4.2 MEQ/L (3.5-5.1); SODIUM LEVEL 140 MEQ/L (136-145); URIC ACID 4.1 MG/DL (3.5-7.2)
== END ==
LOC: M WUC 12:10
DX: M10.9 Gout, unspecified (principal)
CPT/HCPCS: 84550

== ENCOUNTER → 2018-09-10 | Outpatient (CLI) | payer OTHER ==
[~2018-09-10] MED LIST changes: -DRIS50002 PO; +DRIS50003 PO; -GEMF600T PO; +GEMF600T5 PO; +INCR1INH IN; +LISI40TA PO; +PERC5TAB12 PO
[2018-09-10 14:18] LABS: BASO % 0.7 % (0.0-1.0); EOS # 0.1 10^3/uL (0.0-0.50); EOS % 2.8 % (0.0-3.0); HEMATOCRIT 35.4 % (42.0-52.0); HEMOGLOBIN 12.1 g/dl (13.5-17.5); LYMPH # 0.9 10^3/uL (1.5-4.5); MEAN CORPUSCULAR HEMOGLOBIN 34.6 pg (27.0-33.0); MEAN CORPUSCULAR HGB CONC 34.2 g/dl (32.0-36.5); MEAN CORPUSCULAR VOLUME 101.1 fl (80.0-96.0); MONO # 0.7 10^3/uL (0.0-0.8); MONO % 16.8 % (0.0-5.0); NEUTROPHILS # 2.5 10^3/uL (1.8-7.7); PLATELET COUNT, AUTOMATED 124 10^3/uL (150-450); WHITE BLOOD COUNT 4.2 10^3/uL (4.0-10.0)
[2018-09-10 14:32] LABS: ALBUMIN 3.5 GM/DL (3.2-5.2); ALT/SGPT 28 U/L (12-78); BILIRUBIN,TOTAL 0.6 MG/DL (0.2-1.0); BLOOD UREA NITROGEN 14 MG/DL (7-18); CALCIUM LEVEL 8.4 MG/DL (8.5-10.1); CARBON DIOXIDE LEVEL 28 MEQ/L (21-32); CHLORIDE LEVEL 102 MEQ/L (98-107); CHOLESTEROL LEVEL 166 MG/DL (<200); CHOLESTEROL RISK RATIO 2.024 (<5); CREATININE FOR GFR 0.54 MG/DL (0.70-1.30); FERRITIN 507 NG/ML (26-388); GLOMERULAR FILTRATION RATE > 60.0 (>56); GLUCOSE, FASTING 87 MG/DL (70-100); HDL CHOLESTEROL 82 MG/DL (>40); IRON (FE) 136 UG/DL (65-175); LDL CHOLESTEROL 71 MG/DL (<100); NON-HDL-C 84 MG/DL; PERCENT SATURATION 57.1 % (19.7-50.0); POTASSIUM SERUM 4.6 MEQ/L (3.5-5.1); SODIUM LEVEL 138 MEQ/L (136-145); TOTAL IRON BINDING CAPACITY 238 UG/DL (250-450); TOTAL PROTEIN 6.2 GM/DL (6.4-8.2); TRIGLYCERIDES LEVEL 63 MG/DL (<150)
== END ==
LOC: M WUC 12:53
PROVIDERS: ATTEND Nurse Practitioner Adult Health
DX: E03.9 Hypothyroidism, unspecified (principal); E78.2 Mixed hyperlipidemia; R74.8 Abnormal levels of other serum enzymes

== ENCOUNTER → 2018-12-13 | Outpatient (CLI) | payer OTHER ==
[~2018-12-13] MED LIST changes: +FOLI1TAB11 PO; +MAGN500T6 PO; +TURM450C PO
[2018-12-13 14:37] LABS: BASO # 0.1 10^3/uL (0.0-0.2); BASO % 1.5 % (0.0-1.0); EOS # 0.1 10^3/uL (0.0-0.50); EOS % 1.8 % (0.0-3.0); HEMATOCRIT 36.4 % (42.0-52.0); HEMOGLOBIN 12.1 g/dl (13.5-17.5); LYMPH # 0.8 10^3/uL (1.5-4.5); LYMPH % 21.1 % (24.0-44.0); MEAN CORPUSCULAR HEMOGLOBIN 34.5 pg (27.0-33.0); MEAN CORPUSCULAR HGB CONC 33.2 g/dl (32.0-36.5); MEAN CORPUSCULAR VOLUME 103.7 fl (80.0-96.0); MONO # 0.6 10^3/uL (0.0-0.8); MONO % 13.8 % (0.0-5.0); NEUTROPHILS # 2.4 10^3/uL (1.8-7.7); NEUTROPHILS % 60.3 % (36.0-66.0); PLATELET COUNT, AUTOMATED 155 10^3/uL (150-450); RED BLOOD COUNT 3.51 10^6/uL (4.30-6.10)
[2018-12-13 14:56] LABS: ALBUMIN 3.5 GM/DL (3.2-5.2); ALT/SGPT 25 U/L (12-78); BILIRUBIN,TOTAL 0.4 MG/DL (0.2-1.0); BLOOD UREA NITROGEN 20 MG/DL (7-18); CALCIUM LEVEL 9.1 MG/DL (8.5-10.1); CARBON DIOXIDE LEVEL 28 MEQ/L (21-32); CHLORIDE LEVEL 103 MEQ/L (98-107); CREATININE FOR GFR 0.64 MG/DL (0.70-1.30); FERRITIN 349 NG/ML (26-388); GLOMERULAR FILTRATION RATE > 60.0 (>56); GLUCOSE, FASTING 104 MG/DL (70-100); IRON (FE) 82 UG/DL (65-175); PERCENT SATURATION 27.7 % (19.7-50.0); POTASSIUM SERUM 4.1 MEQ/L (3.5-5.1); SODIUM LEVEL 138 MEQ/L (136-145); THYROID STIMULATING HORMONE 0.799 uIU/ML (0.358-3.740); TOTAL IRON BINDING CAPACITY 296 UG/DL (250-450); TOTAL PROTEIN 6.1 GM/DL (6.4-8.2)
[2018-12-13 15:21] LABS: HEMOGLOBIN A1c 4.6 %
== END ==
LOC: M WUC 11:09
PROVIDERS: ATTEND Nurse Practitioner Adult Health
DX: E03.9 Hypothyroidism, unspecified (principal); E78.2 Mixed hyperlipidemia; R74.8 Abnormal levels of other serum enzymes

== ENCOUNTER → 2019-05-15 | Outpatient (CLI) | payer OTHER ==
[~2019-05-15] MED LIST changes: +FERR325T82 PO; -INDO50CA PO; +INDO50CA91 PO; -IRON325T7 PO; +LISI40TA52 PO; -LISI40TAB PO
[2019-05-15 17:29] LABS: BASO # 0.1 10^3/uL (0.0-0.2); BASO % 1.3 % (0.0-1.0); EOS # 0.1 10^3/uL (0.0-0.50); EOS % 2.2 % (0.0-3.0); HEMATOCRIT 36.2 % (42.0-52.0); HEMOGLOBIN 12.3 g/dl (13.5-17.5); LYMPH # 0.9 10^3/uL (1.5-4.5); LYMPH % 19.3 % (24.0-44.0); MEAN CORPUSCULAR HEMOGLOBIN 36.6 pg (27.0-33.0); MEAN CORPUSCULAR VOLUME 107.7 fl (80.0-96.0); MONO # 0.7 10^3/uL (0.0-0.8); MONO % 14.3 % (0.0-5.0); NEUTROPHILS # 2.8 10^3/uL (1.8-7.7); PLATELET COUNT, AUTOMATED 158 10^3/uL (150-450); RED BLOOD COUNT 3.36 10^6/uL (4.30-6.10); WHITE BLOOD COUNT 4.6 10^3/uL (4.0-10.0)
[2019-05-15 17:42] LABS: ALBUMIN 3.9 GM/DL (3.2-5.2); ALT/SGPT 26 U/L (12-78); BILIRUBIN,TOTAL 0.3 MG/DL (0.2-1.0); BLOOD UREA NITROGEN 19 MG/DL (7-18); CALCIUM LEVEL 8.7 MG/DL (8.5-10.1); CARBON DIOXIDE LEVEL 27 MEQ/L (21-32); CHLORIDE LEVEL 101 MEQ/L (98-107); CHOLESTEROL LEVEL 164 MG/DL (<200); CREATININE FOR GFR 0.54 MG/DL (0.70-1.30); FERRITIN 479 NG/ML (26-388); GLOMERULAR FILTRATION RATE > 60.0 (>56); GLUCOSE, FASTING 98 MG/DL (70-100); HDL CHOLESTEROL 40 MG/DL (>40); IRON (FE) 99 UG/DL (65-175); LDL CHOLESTEROL 51 MG/DL (<100); NON-HDL-C 124 MG/DL; PERCENT SATURATION 38.4 % (19.7-50.0); POTASSIUM SERUM 4.7 MEQ/L (3.5-5.1); SODIUM LEVEL 136 MEQ/L (136-145); TOTAL IRON BINDING CAPACITY 258 UG/DL (250-450); TOTAL PROTEIN 6.3 GM/DL (6.4-8.2); TRIGLYCERIDES LEVEL 367 MG/DL (<150)
== END ==
LOC: M WUC 11:41
PROVIDERS: ATTEND Nurse Practitioner Adult Health
DX: E03.9 Hypothyroidism, unspecified (principal); E78.2 Mixed hyperlipidemia; R74.8 Abnormal levels of other serum enzymes; Z79.899 Other long term (current) drug therapy

== ENCOUNTER → 2019-08-11 | Outpatient (CLI) | payer OTHER ==
[~2019-08-11] MED LIST changes: -OMEP40CA2 PO; +OMEP40CA97 PO
[2019-08-11 20:06] LABS: BASO # 0.1 10^3/uL (0.0-0.2); BASO % 1.4 % (0.0-1.0); EOS # 0.1 10^3/uL (0.0-0.5); EOS % 1.4 % (0.0-3.0); HEMATOCRIT 35.5 % (42.0-52.0); HEMOGLOBIN 12.1 g/dl (13.5-17.5); LYMPH # 1.1 10^3/uL (1.5-5.0); LYMPH % 21.6 % (24.0-44.0); MEAN CORPUSCULAR HEMOGLOBIN 35.4 pg (27.0-33.0); MEAN CORPUSCULAR HGB CONC 34.1 g/dl (32.0-36.5); MEAN CORPUSCULAR VOLUME 103.8 fl (80.0-96.0); MONO # 0.8 10^3/uL (0.0-0.8); MONO % 16.9 % (0.0-5.0); NEUTROPHILS # 2.8 10^3/uL (1.5-8.5); NEUTROPHILS % 57.3 % (36.0-66.0); PLATELET COUNT, AUTOMATED 166 10^3/uL (150-450); RED BLOOD COUNT 3.42 10^6/uL (4.30-6.10); WHITE BLOOD COUNT 4.9 10^3/uL (4.0-10.0)
[2019-08-11 20:17] LABS: ALBUMIN 3.9 GM/DL (3.2-5.2); ALT/SGPT 24 U/L (12-78); BILIRUBIN,TOTAL 0.6 MG/DL (0.2-1.0); BLOOD UREA NITROGEN 19 MG/DL (7-18); CALCIUM LEVEL 9.5 MG/DL (8.5-10.1); CARBON DIOXIDE LEVEL 28 MEQ/L (21-32); CHLORIDE LEVEL 102 MEQ/L (98-107); CREATININE FOR GFR 0.62 MG/DL (0.70-1.30); FERRITIN 464 NG/ML (26-388); FREE THYROXINE INDEX 2.1 % (1.4-3.8); GLOMERULAR FILTRATION RATE > 60.0 (>56); GLUCOSE, FASTING 88 MG/DL (70-100); IRON (FE) 168 UG/DL (65-175); POTASSIUM SERUM 4.1 MEQ/L (3.5-5.1); SODIUM LEVEL 137 MEQ/L (136-145); T UPTAKE 36 % (33-40); THYROXINE (T4) 5.7 UG/DL (4.5-12.0); TOTAL PROTEIN 6.5 GM/DL (6.4-8.2)
== END ==
LOC: M WUC 15:45
PROVIDERS: ATTEND Nurse Practitioner Adult Health
DX: E03.9 Hypothyroidism, unspecified (principal); Z79.899 Other long term (current) drug therapy; R74.8 Abnormal levels of other serum enzymes; E78.2 Mixed hyperlipidemia

== ENCOUNTER → 2019-11-13 | Outpatient (CLI) | payer OTHER ==
[~2019-11-13] MED LIST changes: -SIMV40TA2 PO; +SIMV40TA20 PO
[2019-11-13 17:39] LABS: BASO # 0.1 10^3/uL (0.0-0.2); BASO % 1.4 % (0.0-1.0); EOS # 0.1 10^3/uL (0.0-0.5); EOS % 1.9 % (0.0-3.0); HEMATOCRIT 33.1 % (42.0-52.0); HEMOGLOBIN 11.5 g/dl (13.5-17.5); LYMPH # 0.8 10^3/uL (1.5-5.0); LYMPH % 23.1 % (24.0-44.0); MEAN CORPUSCULAR HEMOGLOBIN 35.7 pg (27.0-33.0); MEAN CORPUSCULAR HGB CONC 34.7 g/dl (32.0-36.5); MEAN CORPUSCULAR VOLUME 102.8 fl (80.0-96.0); MONO # 0.5 10^3/uL (0.0-0.8); MONO % 13.9 % (0.0-5.0); NEUTROPHILS # 2.1 10^3/uL (1.5-8.5); NEUTROPHILS % 58.3 % (36.0-66.0); PLATELET COUNT, AUTOMATED 138 10^3/uL (150-450); RED BLOOD COUNT 3.22 10^6/uL (4.30-6.10); WHITE BLOOD COUNT 3.6 10^3/uL (4.0-10.0)
[2019-11-13 17:58] LABS: ALT/SGPT 20 U/L (12-78); BILIRUBIN,TOTAL 0.4 MG/DL (0.2-1.0); BLOOD UREA NITROGEN 12 MG/DL (7-18); CALCIUM LEVEL 8.8 MG/DL (8.5-10.1); CARBON DIOXIDE LEVEL 27 MEQ/L (21-32); CHLORIDE LEVEL 106 MEQ/L (98-107); CHOLESTEROL LEVEL 179 MG/DL (<200); CREATININE FOR GFR 0.56 MG/DL (0.70-1.30); GLOMERULAR FILTRATION RATE > 60.0 (>56); GLUCOSE, FASTING 92 MG/DL (70-100); HDL CHOLESTEROL 44 MG/DL (>40); POTASSIUM SERUM 3.8 MEQ/L (3.5-5.1); SODIUM LEVEL 138 MEQ/L (136-145); TRIGLYCERIDES LEVEL 350 MG/DL (<150)
[2019-11-13 17:59] LABS: ALBUMIN 3.6 GM/DL (3.2-5.2); CHOLESTEROL RISK RATIO 4.068 (<5); FERRITIN 470 NG/ML (26-388); IRON (FE) 143 UG/DL (65-175); LDL CHOLESTEROL 65 MG/DL (<100); NON-HDL-C 135 MG/DL; PERCENT SATURATION 47.7 % (19.7-50.0); TOTAL IRON BINDING CAPACITY 300 UG/DL (250-450); TOTAL PROTEIN 6.1 GM/DL (6.4-8.2)
== END ==
LOC: M WUC 14:17
PROVIDERS: ATTEND Physician Assistant Medical
DX: D69.6 Thrombocytopenia, unspecified (principal); E83.118 Other hemochromatosis; Z79.899 Other long term (current) drug therapy; E78.2 Mixed hyperlipidemia; E74.8 Other specified disorders of carbohydrate metabolism

== ENCOUNTER → 2020-02-07 | Outpatient (CLI) | payer OTHER ==
[2020-02-07 16:36] LABS: BASO # 0.1 10^3/uL (0.0-0.2); BASO % 1.3 % (0.0-1.0); EOS % 0.8 % (0.0-3.0); HEMATOCRIT 33.4 % (42.0-52.0); HEMOGLOBIN 11.3 g/dl (13.5-17.5); LYMPH # 0.9 10^3/uL (1.5-5.0); LYMPH % 23.5 % (24.0-44.0); MEAN CORPUSCULAR HEMOGLOBIN 34.7 pg (27.0-33.0); MEAN CORPUSCULAR HGB CONC 33.8 g/dl (32.0-36.5); MEAN CORPUSCULAR VOLUME 102.5 fl (80.0-96.0); MONO # 0.5 10^3/uL (0.0-0.8); MONO % 14.4 % (0.0-5.0); NEUTROPHILS # 2.2 10^3/uL (1.5-8.5); NEUTROPHILS % 58.9 % (36.0-66.0); PLATELET COUNT, AUTOMATED 158 10^3/uL (150-450); RED BLOOD COUNT 3.26 10^6/uL (4.30-6.10); WHITE BLOOD COUNT 3.7 10^3/uL (4.0-10.0)
[2020-02-07 16:43] LABS: ALBUMIN 3.2 GM/DL (3.2-5.2); ALT/SGPT 25 U/L (12-78); BILIRUBIN,TOTAL 0.4 MG/DL (0.2-1.0); BLOOD UREA NITROGEN 12 MG/DL (7-18); CALCIUM LEVEL 8.3 MG/DL (8.5-10.1); CARBON DIOXIDE LEVEL 26 MEQ/L (21-32); CHLORIDE LEVEL 105 MEQ/L (98-107); CHOLESTEROL LEVEL 161 MG/DL (<200); CHOLESTEROL RISK RATIO 4.472 (<5); CREATININE FOR GFR 0.64 MG/DL (0.70-1.30); FERRITIN 566 NG/ML (26-388); GLOMERULAR FILTRATION RATE > 60.0 (>56); GLUCOSE, FASTING 97 MG/DL (70-100); HDL CHOLESTEROL 36 MG/DL (>40); IRON (FE) 201 UG/DL (65-175); MAGNESIUM LEVEL 1.4 MG/DL (1.8-2.4); NON-HDL-C 125 MG/DL; PERCENT SATURATION 83.8 % (19.7-50.0); POTASSIUM SERUM 3.6 MEQ/L (3.5-5.1); SODIUM LEVEL 138 MEQ/L (136-145); TOTAL IRON BINDING CAPACITY 240 UG/DL (250-450); TOTAL PROTEIN 5.8 GM/DL (6.4-8.2); TRIGLYCERIDES LEVEL 753 MG/DL (<150)
== END ==
LOC: M WUC 14:06
PROVIDERS: ATTEND Nurse Practitioner Adult Health
DX: Z51.81 Encounter for therapeutic drug level monitoring (principal); Z79.899 Other long term (current) drug therapy; D69.6 Thrombocytopenia, unspecified; E83.118 Other hemochromatosis; D51.9 Vitamin B12 deficiency anemia, unspecified; R74.8 Abnormal levels of other serum enzymes; G47.62 Sleep related leg cramps; R53.83 Other fatigue; R11.0 Nausea

== ENCOUNTER → 2020-04-11 | Outpatient (CLI) | payer OTHER ==
[~2020-04-11] MED LIST changes: +FURO20TA2 PO; +PROHANCE 279.3MG/ML 15ML VIAL As Ordered ONE; +SM P99TA PO; +TARTCAP PO
--- NOTE | 2020-04-11 16:27 | REP ---
MRI ABDOMEN AND LIVER WITHOUT AND WITH IV CONTRAST: HISTORY: Hemochromatosis. Rule out carcinoma, fatty infiltration, cirrhosis, iron overload. 13 mL of intravenous ProHance is administered. TECHNIQUE: Axial and coronal imaging planes utilized. T1- and T2-weighted sequences include spin-echo, fast spin echo, diffusion, in and [id number], and dynamically acquired post contrast imaging. Comparison sonography of the liver is from January 28, 2006. MRI FINDINGS: There is no evidence of ascites or focal liver mass lesion. The spleen is borderline in size measuring 12.3 cm x 9.5 cm x 5.2 cm. No focal splenic lesion is seen. Normal adrenal glands are noted. No abnormality is seen in the pancreas or the gallbladder. There is no evidence of diffuse or regional hepatic signal intensity loss on [id number] images to suggest significant fatty infiltration. Indeed, hepatic signal intensity is a lower on the in phase sequence. In addition, there is diffusely low signal intensity in the liver parenchyma on T2-weighted scans. These findings suggest mild iron deposition within the liver parenchyma. The main portal vein is patent and normal in size measuring 13.4 mm. No visible venous collaterals are seen. No renal mass lesion or other morphologic abnormality is seen. Diffusion weighted scans show no focal area of restricted diffusion. There is no evidence of hypervascular liver lesion or other abnormal contrast enhancement. IMPRESSION: Decreased T1- and T2 signal intensity seen diffusely in the liver consistent with mild degree of iron deposition. Borderline spleen size. No focal liver mass lesion is seen. There is no evidence of ascites, cirrhosis, or portal venous hypertension. Electronically Signed by Theo Buenrostro MD 04/11/2020 04:41 P
== END ==
LOC: M RAD 13:48
PROVIDERS: ATTEND Internal Medicine Hematology & Oncology
DX: Z86.2 Personal history of diseases of the blood and blood-forming organs and certain disorders involving the immune mechanism (principal)
CPT/HCPCS: 74183; A9576

== ENCOUNTER → 2020-05-16 | Outpatient (CLI) | payer OTHER ==
[~2020-05-16] MED LIST changes: -PROHANCE 279.3MG/ML 15ML VIAL As Ordered ONE
[2020-05-16 19:36] LABS: BASO % 1.2 % (0.0-1.0); EOS % 1.2 % (0.0-3.0); HEMATOCRIT 29.5 % (42.0-52.0); HEMOGLOBIN 10.4 g/dl (13.5-17.5); LYMPH # 0.9 10^3/uL (1.5-5.0); LYMPH % 25.9 % (24.0-44.0); MEAN CORPUSCULAR HEMOGLOBIN 36.2 pg (27.0-33.0); MEAN CORPUSCULAR HGB CONC 35.3 g/dl (32.0-36.5); MEAN CORPUSCULAR VOLUME 102.8 fl (80.0-96.0); MONO # 0.6 10^3/uL (0.0-0.8); MONO % 18.3 % (0.0-5.0); NEUTROPHILS # 1.7 10^3/uL (1.5-8.5); NEUTROPHILS % 52.2 % (36.0-66.0); PLATELET COUNT, AUTOMATED 149 10^3/uL (150-450); RED BLOOD COUNT 2.87 10^6/uL (4.30-6.10); WHITE BLOOD COUNT 3.3 10^3/uL (4.0-10.0)
[2020-05-16 19:43] LABS: ALT/SGPT 24 U/L (12-78); BILIRUBIN,TOTAL 0.7 MG/DL (0.2-1.0); BLOOD UREA NITROGEN 15 MG/DL (7-18); CALCIUM LEVEL 9.6 MG/DL (8.5-10.1); CARBON DIOXIDE LEVEL 30 MEQ/L (21-32); CHLORIDE LEVEL 101 MEQ/L (98-107); CHOLESTEROL LEVEL 203 MG/DL (<200); CHOLESTEROL RISK RATIO 3.327 (<5); CREATININE FOR GFR 0.64 MG/DL (0.70-1.30); GLOMERULAR FILTRATION RATE > 60.0 (>56); GLUCOSE, FASTING 94 MG/DL (70-100); HDL CHOLESTEROL 61 MG/DL (>40); IRON (FE) 209 UG/DL (65-175); LDL CHOLESTEROL 79 MG/DL (<100); MAGNESIUM LEVEL 1.8 MG/DL (1.8-2.4); NON-HDL-C 142 MG/DL; PERCENT SATURATION 54.1 % (19.7-50.0); POTASSIUM SERUM 3.9 MEQ/L (3.5-5.1); SODIUM LEVEL 137 MEQ/L (136-145); TOTAL IRON BINDING CAPACITY 386 UG/DL (250-450); TOTAL PROTEIN 6.9 GM/DL (6.4-8.2); TRIGLYCERIDES LEVEL 314 MG/DL (<150)
[2020-05-16 19:52] LABS: HEMOGLOBIN A1c 5.1 %
== END ==
LOC: M WUC 15:23
PROVIDERS: ATTEND Nurse Practitioner Adult Health
DX: Z51.81 Encounter for therapeutic drug level monitoring (principal); Z79.899 Other long term (current) drug therapy; D69.6 Thrombocytopenia, unspecified; E83.118 Other hemochromatosis; K29.70 Gastritis, unspecified, without bleeding; R74.8 Abnormal levels of other serum enzymes; D51.9 Vitamin B12 deficiency anemia, unspecified

== ENCOUNTER → 2020-06-29 | Outpatient (CLI) | payer OTHER | LOC: M RAD 15:01 | PROVIDERS: ATTEND Internal Medicine Hematology & Oncology | DX: Z53.9 Procedure and treatment not carried out, unspecified reason (principal); R59.0 Localized enlarged lymph nodes ==

== ENCOUNTER → 2020-08-11 | Outpatient (CLI) | payer OTHER ==
[2020-08-11 17:35] LABS: BASO # 0.1 10^3/uL (0.0-0.2); BASO % 1.6 % (0.0-1.0); EOS # 0.1 10^3/uL (0.0-0.5); EOS % 1.9 % (0.0-3.0); HEMATOCRIT 36.3 % (42.0-52.0); HEMOGLOBIN 11.8 g/dl (13.5-17.5); LYMPH # 0.9 10^3/uL (1.5-5.0); LYMPH % 22.9 % (24.0-44.0); MEAN CORPUSCULAR HEMOGLOBIN 33.3 pg (27.0-33.0); MEAN CORPUSCULAR HGB CONC 32.5 g/dl (32.0-36.5); MEAN CORPUSCULAR VOLUME 102.5 fl (80.0-96.0); MONO # 0.6 10^3/uL (0.0-0.8); MONO % 17.1 % (0.0-5.0); NEUTROPHILS # 2.1 10^3/uL (1.5-8.5); NEUTROPHILS % 54.9 % (36.0-66.0); PLATELET COUNT, AUTOMATED 192 10^3/uL (150-450); RED BLOOD COUNT 3.54 10^6/uL (4.30-6.10); WHITE BLOOD COUNT 3.8 10^3/uL (4.0-10.0)
[2020-08-11 17:51] LABS: HEMOGLOBIN A1c 5.1 %
[2020-08-11 17:52] LABS: PHOSPHORUS LEVEL 2.7 MG/DL (2.5-4.9)
[2020-08-11 18:00] LABS: ALBUMIN 4.3 GM/DL (3.2-5.2); ALT/SGPT 25 U/L (12-78); BILIRUBIN,TOTAL 0.7 MG/DL (0.2-1.0); BLOOD UREA NITROGEN 10 MG/DL (7-18); CALCIUM LEVEL 9.3 MG/DL (8.5-10.1); CARBON DIOXIDE LEVEL 28 MEQ/L (21-32); CHLORIDE LEVEL 105 MEQ/L (98-107); CHOLESTEROL LEVEL 194 MG/DL (<200); CHOLESTEROL RISK RATIO 3.288 (<5); CREATININE FOR GFR 0.76 MG/DL (0.70-1.30); GLOMERULAR FILTRATION RATE > 60.0 (>56); GLUCOSE, FASTING 92 MG/DL (70-100); HDL CHOLESTEROL 59 MG/DL (>40); IRON (FE) 252 UG/DL (65-175); LDL CHOLESTEROL 59 MG/DL (<100); MAGNESIUM LEVEL 1.7 MG/DL (1.8-2.4); NON-HDL-C 135 MG/DL; PERCENT SATURATION 60.1 % (19.7-50.0); POTASSIUM SERUM 3.7 MEQ/L (3.5-5.1); SODIUM LEVEL 140 MEQ/L (136-145); TOTAL IRON BINDING CAPACITY 419 UG/DL (250-450); TOTAL PROTEIN 7.6 GM/DL (6.4-8.2); TRIGLYCERIDES LEVEL 382 MG/DL (<150)
[2020-08-15 01:08] LABS: PSA TOTAL 0.1 ng/mL (0.0-4.0)
== END ==
LOC: M WUC 15:50
PROVIDERS: ATTEND Internal Medicine Hematology & Oncology
DX: D72.819 Decreased white blood cell count, unspecified (principal); E83.110 Hereditary hemochromatosis

== ENCOUNTER → 2020-10-30 | Outpatient (CLI) | payer OTHER ==
[~2020-10-30] MED LIST changes: -LISI40TA PO; +LISI40TA4 PO
[2020-10-30 16:22] LABS: BASO # 0.1 10^3/uL (0.0-0.2); BASO % 1.7 % (0.0-1.0); EOS # 0.1 10^3/uL (0.0-0.5); EOS % 1.9 % (0.0-3.0); HEMATOCRIT 32.4 % (42.0-52.0); HEMOGLOBIN 10.9 g/dl (13.5-17.5); LYMPH # 0.7 10^3/uL (1.5-5.0); LYMPH % 17.8 % (24.0-44.0); MEAN CORPUSCULAR HEMOGLOBIN 35.4 pg (27.0-33.0); MEAN CORPUSCULAR HGB CONC 33.6 g/dl (32.0-36.5); MEAN CORPUSCULAR VOLUME 105.2 fl (80.0-96.0); MONO # 0.7 10^3/uL (0.0-0.8); MONO % 17.3 % (0.0-5.0); NEUTROPHILS # 2.4 10^3/uL (1.5-8.5); NEUTROPHILS % 58.6 % (36.0-66.0); PLATELET COUNT, AUTOMATED 183 10^3/uL (150-450); RED BLOOD COUNT 3.08 10^6/uL (4.30-6.10); WHITE BLOOD COUNT 4.1 10^3/uL (4.0-10.0)
[2020-10-30 16:45] LABS: IMMUNOGLOBULIN M 88.7 MG/DL (40-230); MAGNESIUM LEVEL 1.5 MG/DL (1.8-2.4)
== END ==
LOC: M WUC 13:27
PROVIDERS: ATTEND Internal Medicine Hematology & Oncology
DX: D72.819 Decreased white blood cell count, unspecified (principal); E83.110 Hereditary hemochromatosis

== ENCOUNTER → 2020-11-12 | Outpatient (CLI) | payer OTHER ==
[2020-11-12 17:39] LABS: BASO # 0.1 10^3/uL (0.0-0.2); EOS # 0.1 10^3/uL (0.0-0.5); EOS % 1.5 % (0.0-3.0); HEMATOCRIT 33.3 % (42.0-52.0); LYMPH # 0.9 10^3/uL (1.5-5.0); LYMPH % 22.4 % (24.0-44.0); MEAN CORPUSCULAR HEMOGLOBIN 34.6 pg (27.0-33.0); MEAN CORPUSCULAR VOLUME 104.7 fl (80.0-96.0); MONO # 0.8 10^3/uL (0.0-0.8); MONO % 19.6 % (2.0-8.0); NEUTROPHILS % 50.9 % (36.0-66.0); PLATELET COUNT, AUTOMATED 187 10^3/uL (150-450); RED BLOOD COUNT 3.18 10^6/uL (4.30-6.10); WHITE BLOOD COUNT 3.9 10^3/uL (4.0-10.0)
[2020-11-12 17:40] LABS: ALBUMIN 3.8 GM/DL (3.2-5.2); ALT/SGPT 31 U/L (12-78); BILIRUBIN,TOTAL 0.5 MG/DL (0.2-1.0); BLOOD UREA NITROGEN 11 MG/DL (7-18); CALCIUM LEVEL 8.5 MG/DL (8.5-10.1); CARBON DIOXIDE LEVEL 28 MEQ/L (21-32); CHLORIDE LEVEL 102 MEQ/L (98-107); CHOLESTEROL LEVEL 192 MG/DL (<200); CREATININE FOR GFR 0.63 MG/DL (0.70-1.30); FERRITIN 263 NG/ML (26-388); GLOMERULAR FILTRATION RATE > 60.0 (>56); GLUCOSE, FASTING 105 MG/DL (70-100); HDL CHOLESTEROL 48 MG/DL (>40); IRON (FE) 134 UG/DL (65-175); MAGNESIUM LEVEL 1.5 MG/DL (1.8-2.4); NON-HDL-C 144 MG/DL; PERCENT SATURATION 36.6 % (19.7-50.0); SODIUM LEVEL 137 MEQ/L (136-145); TOTAL IRON BINDING CAPACITY 366 UG/DL (250-450); TOTAL PROTEIN 6.7 GM/DL (6.4-8.2); TRIGLYCERIDES LEVEL 531 MG/DL (<150)
[2020-11-12 17:46] LABS: HEMOGLOBIN A1c 4.7 %
== END ==
LOC: M WUC 13:53
PROVIDERS: ATTEND Nurse Practitioner Adult Health
DX: D69.6 Thrombocytopenia, unspecified (principal); E83.118 Other hemochromatosis; Z79.899 Other long term (current) drug therapy; R74.8 Abnormal levels of other serum enzymes; E78.2 Mixed hyperlipidemia; K29.70 Gastritis, unspecified, without bleeding; D51.9 Vitamin B12 deficiency anemia, unspecified

== ENCOUNTER → 2021-01-02 | Outpatient (CLI) | payer OTHER ==
--- NOTE | 2021-01-04 00:29 | ECWPNPC ---
PATIENT NAME: CHARLEY ATWOOD : 1965 GENDER: MALE VISIT DATE: 01/02/2021 DISCHARGE DATE: 01/02/21 1356 VISIT LOCKED DATE TIME: PHYSICIAN: DAVINA BREWSTER RESOURCE: DAVINA BREWSTER REASON FOR APPOINTMENT 1. NECK,SHOULDER,ARM HISTORY OF PRESENT ILLNESS DEPRESSION SCREENING: PHQ-9 LITTLE INTEREST OR PLEASURE IN DOING THINGSSEVERAL DAYS FEELING DOWN, DEPRESSED, OR HOPELESSSEVERAL DAYS TROUBLE FALLING OR STAYING ASLEEP, OR SLEEPING TOO MUCHNOT AT ALL FEELING TIRED OR HAVING LITTLE ENERGYNEARLY EVERY DAY POOR APPETITE OR OVEREATING NOT AT ALL FEELING BAD ABOUT YOURSELF-OR THAT YOU ARE A FAILURE OR HAVE LET YOURSELF OR YOUR FAMILY DOWN NOT AT ALL TROUBLE CONCENTRATING ON THINGS, SUCH READING THE NEWSPAPER OR WATCHING TELEVISION NOT AT ALL MOVING OR SPEAKING SO SLOWLY THAT OTHER PEOPLE COULD HAVE NOTICED. OR THE OPPOSITE- BEING SO FIDGETY OR RESTLESS THAT YOU HAVE BEEN MOVING AROUND A LOT MORE THAN USUALNOT AT ALL THOUGHTS THAT YOU WOULD BE BETTER OFF , OR OF HURTING YOURSELF IN SOME WAY?NOT AT ALL TOTAL SCORE:5 INTERPRETATIONMILD DEPRESSION PHQ-2 (2015 EDITION) LITTLE INTEREST OR PLEASURE IN DOING THINGS?SEVERAL DAYS FEELING DOWN, DEPRESSED, OR HOPELESS?SEVERAL DAYS TOTAL SCORE2 GENERAL: 55 Y/O GENTLEMAN REFERRED BY VICKIE RINCON FOR LEFT SHOULDER AND ARM PAIN.REPORTING MAINLY PARATHESIAS IN HIS LEFT ARM.HE IS A VAGUE HISTORIAN.HAS NERVE CONDUCTION STUDIES SCHEDULED.CURRENTLY FOLLOWING WITH ONCOLOGY FOR POSSIBLE BLOOD DYSCRASIA AND HE IS NOT CLEAR IF HE HAS A DIAGNOSIS.SYMPTOMS HE IS COMPLAINING OF ARE NOT TRULY CONSISTENT WITH CERVICAL RADICULOPATHY.OVERALL HE DOESNT FEEL WELL.WE DISCUSSED NEED FOR FURTHER WORKUP TO DECIDE ON RIGHT TREATMENT TO PURSUE. - - -. FALL RISK SCREENING: SCREENING : NO FALLS REPORTED IN THE LAST YEAR , : NO FALLS REPORTED IN THE LAST YEAR. PAIN SCREENING: PATIENT HAS A COMPLAINT OF ACUTE OR CHRONIC PAIN :YES LOCATION OF PAIN:LEFT SHOULDER LEFT ARM INTENSITY OF PAIN (SCALE OF 1 TO 10):1 WHAT DOES YOUR PAIN FEEL LIKE:BURNING DURATION:MAINLY DURING THE NIGHT, INTERMITTENT PAIN IS INCREASED BY:OTHERS NOTHING PAIN IS DECREASED BY:OTHERS NOTHING HELPS NURSING NOTE: - - -. PAIN CENTER INTAKE QUESTIONS: DO YOU HAVE A HISTORY OF MRSA? :NO DO YOU TAKE A BLOOD THINNERS? :NO DO YOU HAVE ANY BLEEDING DISORDERS? :NO BUT IF TAKE AND [employer] WILL EFFECT IT ANY NEW NUMBNESS OR WEAKNESS IN YOUR LEGS OR ARMS? :NO ANY PACEMAKER,DEFIBRILLATOR, OR DORSAL COLUMN STIMULATOR? :NO DO YOU HAVE ANY RASHES OR OPEN SORES? :NO ARE YOU ALLERGIC TO IV DYE? :NO ARE YOU DIABETIC? :NO ANY NEW PROBLEMS WITH YOUR MEDICATIONS? :NO HAVE YOU RECEIVED A VACCINE IN THE PAST 30 DAYS? :YES 2ND COVID 01/01/2021 DO YOU PLAN TO RECEIVE A VACCINE IN THE NEXT 21 DAYS? :NO DO YOU NEED ANY PRESCRIPTION? :NO DO YOU TAKE ANY IMMUNOSUPPRESSIVE MEDICATIONS? :NO CURRENT MEDICATIONS TAKING FOLIC ACID 1 MG TABLET 1 TABLET ORALLY ONCE A DAY TAKING GEMFIBROZIL 600 MG TABLET 1 TABLET 30 MINUTES BEFORE MORNING AND EVENING MEALS ORALLY TWICE A DAY TAKING HM SUPER VITAMIN B12 2500 MCG TABLET CHEWABLE DIRECTED ORALLY TAKING LISINOPRIL 40 MG TABLET 1 TABLET ORALLY ONCE A DAY TAKING MAGNESIUM 400 MG TABLET DIRECTED ORALLY TWICE A DAY TAKING METOPROLOL TARTRATE 50 MG TABLET 1.5 TABLET WITH FOOD ORALLY ONCE A DAY TAKING OMEPRAZOLE MAGNESIUM 20 MG TABLET DELAYED RELEASE 1 TABLET 30 MINUTES BEFORE MORNING MEAL ORALLY ONCE A DAY TAKING POTASSIUM CHLORIDE KATHLEEN CR ONCE EVERY DAY TAKING TURMERIC 500 MG TABLET DIRECTED ORALLY TWICE A DAY MEDICATION LIST REVIEWED AND RECONCILED WITH THE PATIENT PAST MEDICAL HISTORY ESSENTIAL HYPERTENSION DISORDER OF [place] OF SHOULDER REGION NECK PAIN BRACHIAL NERUITIS PURE HYPERGLYCEMIA COBALAMIN DIFICIENCY THOMBOCYTOPEIC DISORDER HEMOCHROMATOSIS HIGH ENZYME LEVEL IN SERUM GASTRODUODENITIS MIXED HYPERLIPIDEMIA CRAMPS IN LOWER LEG ASSOCIATED WITH REST VIT D DEFICIENCY MUSCLE AMP DEAMINASE DEFICIENCY O/E: INSPECTION OF BLOOD MYALGIA-UNSPECIFIED SITE PLANTAR NERVE LESION COPD HYPOTHYROIDISM DEGENERATIVE DISC DISEASE OSTEOARTHRITIS ANXIETY DEPRESSION ALLERGIES MELOXICAM: LEGS SWELLOWING - SIDE EFFECTS ALBUTEROL: HIGH HEART RATE - SIDE EFFECTS NSAIDS: BLEEDING GASTRIC SURGICAL HISTORY HERNIA REPAIR COLONOSCOPY 2X BONE MARROW BIOPSY FAMILY HISTORY FATHER: , HEART FAILURE MOTHER: , BREAST CA, BRAIN TUMOR SIBLINGS: ALIVE DAUGHTER(S): ALIVE 1 SISTER(S) . 4DAUGHTER(S) - HEALTHY. SOCIAL HISTORY GENERAL: TOBACCO USE ARE YOU A:FORMER SMOKER QUIT 2011 LATEX QUESTIONNAIRE LATEX ALLERGY : HAVE YOU EVER DEVELOPED ANY TYPE OF REACTION AFTER HANDLING LATEX PRODUCTS SUCH RUBBER GLOVES, CONDOMS, DIAPHRAGMS, BALLOONS, SOCKS, OR UNDERWEAR?NO LATEX ALLERGY : HAVE YOU EVER DEVELOPED ANY TYPE OF REACTION DURING OR AFTER DENTAL APPOINTMENT, VAGINAL/RECTAL EXAMINATION, SURGICAL PROCEDURE, OR ANY OTHER EXPOSURE?NO LATEX RISK : HAVE YOU EVER HAD ANY DIFFICULTY BREATHING OR HIVES AFTER EATING OR HANDLING ANY FRUITS, OR VEGETABLES; SUCH KIWI, BANANAS, STONE FRUITS, OR CHESTNUTSNO LATEX RISK : DO YOU HAVE A PREVIOUS PERSONAL HISTORY OF MORE THAN NINE SURGERIES, SPINA BIFIDA, OR REPEATED CATHERIZATIONS? NO LATEX RISK : ARE YOU FREQUENTLY EXPOSED TO LATEX PRODUCTS IN YOUR OCCUPATION?YES DATE ASKED : 01/02/2021 ALCOHOL USE: YES,A BEER ONCE IN WHILE. RECREATIONAL DRUG USE DRUG USE?NO LANGUAGE LANGUAGES SPOKEN:NEW ZEALANDER LEARNING BARRIERS / SPECIAL NEEDS BARRIERS TO LEARNING?NO HEARING IMPAIRED?NO VISION IMPAIRED?YES :CORRECTIVE LENSES COGNITIVELY IMPAIRED?NO READINESS TO LEARN?YES LEARNING PREFERENCES?YES :DEMONSTRATION/VERBAL INSTRUCTION LEARNING CAPABILITIES PRESENT?YES EMOTIONAL BARRIERS?NO SPECIAL DEVICES?NO MACHINE DEBURRER NEEDED?NO HOSPITALIZATION/MAJOR DIAGNOSTIC PROCEDURE NO HOSPITALIZATION HISTORY. REVIEW OF SYSTEMS CONSTITUTIONAL: ANY RECENT FEVER NO . CHILLS NO . WEIGHT CHANGE OF UNKNOWN REASONS NO . GASTROENTEROLOGY: NEW UNEXPLAINABLE CHANGES IN BOWEL CONTROL NO . CONSTIPATION NO . GENITOURINARY: ANY NEW CHANGE IN BLADDER CONTROL? NO . NEUROLOGY: NEW ONSET DIZZINESS OR NEUROLOGICAL CHANGES NOT MENTIONED NO . NEW NUMBNESS OR PAIN PATTERNS NOT MENTIONED AND PERTINENT TO TODAY'S VISIT NO . CARDIOLOGY: NEW CHEST PRESSURE NO . PATIENT DENIES NO . RESPIRATORY: UNEXPLAINABLE COUGH NO . NEW SHORTNESS OF BREATH NO . VITAL SIGNS WT 159.6 LBS, HT 68 IN, BMI 24.26 INDEX, BP 119/60 MM HG, HR 76 /MIN, RR 18 /MIN, TEMP 98.6 F, OXYGEN SAT % 99%, SAFE IN ENV? (Y/N) YES, NA INITIALS ND 13:15T.LISE BARNETT. EXAMINATION GENERAL EXAMINATION: GENERALNO ACUTE DISTRESS, WELL NOURISHED AND HYDRATED. PSYCHAPPROPRIATE MOOD AND AFFECT . NECK:NO LYMPHADENOPATHY, SUPPLE. LUNGS:CLEAR TO AUSCULTATION BILATERALLY, NO WHEEZES, RHONCHI, RALES. HEART:NO MURMURS, REGULAR RATE AND RHYTHM. CERVICAL: NONTENDER WITH PALPATION. NEUROLOGIC EXAM: SLIGHTLY WEAK IT DIRECTOR OVER LEFT HAND COMPARED TO RIGHT. DIAGNOSTIC TESTS REVIEWED MRI C/S 2020-REVIEWED. 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 PROCEDURE CODES FA211 ESTABILISHED PATIENT [facility] CHARGE DISPOSITION & COMMUNICATION FOLLOW UP 6WKS REVIEW NO CO NEUROLGY EMG/REVIEW NOTES FROM ONCOLOGY, 6 WEEKS (REASON: LEFT ARM NEURALGIA) ELECTRONICALLY SIGNED BY SILVINA VALDOVINOS ON 01/03/2021 AT 07:46 PM EDT DISCLAIMER : THIS IS A VISIT SUMMARY EXTRACTED FROM THE epicurio CHART. IT IS NOT A COPY OF THE epicurio PROGRESS NOTE. [facility]
== END ==
LOC: M PAIN 13:00
PROVIDERS: ATTEND Nurse Practitioner Family
DX: M79.2 Neuralgia and neuritis, unspecified (principal); J44.9 Chronic obstructive pulmonary disease, unspecified; Z86.59 Personal history of other mental and behavioral disorders; Z87.891 Personal history of nicotine dependence; Z88.6 Allergy status to analgesic agent; Z88.8 Allergy status to other drugs, medicaments and biological substances; Z79.899 Other long term (current) drug therapy

== ENCOUNTER → 2021-02-06 | Outpatient (CLI) | payer OTHER ==
[2021-02-06 16:58] LABS: IMMUNOGLOBULIN M 88.2 MG/DL (40-230); PERCENT SATURATION 38.3 % (19.7-50.0)
== END ==
LOC: M WUC 14:27
PROVIDERS: ATTEND Internal Medicine Hematology & Oncology
DX: D72.819 Decreased white blood cell count, unspecified (principal); D75.9 Disease of blood and blood-forming organs, unspecified; E83.110 Hereditary hemochromatosis

== ENCOUNTER → 2021-02-06 | Outpatient (CLI) | payer OTHER ==
[2021-02-06 16:19] LABS: BASO # 0.1 10^3/uL (0.0-0.2); BASO % 1.7 % (0.0-1.0); EOS # 0.1 10^3/uL (0.0-0.5); EOS % 1.7 % (0.0-3.0); HEMATOCRIT 31.4 % (42.0-52.0); HEMOGLOBIN 10.5 g/dl (13.5-17.5); LYMPH # 0.7 10^3/uL (1.5-5.0); LYMPH % 21.1 % (24.0-44.0); MEAN CORPUSCULAR HEMOGLOBIN 34.7 pg (27.0-33.0); MEAN CORPUSCULAR HGB CONC 33.4 g/dl (32.0-36.5); MEAN CORPUSCULAR VOLUME 103.6 fl (80.0-96.0); MONO # 0.7 10^3/uL (0.0-0.8); MONO % 19.4 % (2.0-8.0); NEUTROPHILS # 1.9 10^3/uL (1.5-8.5); NEUTROPHILS % 53.2 % (36.0-66.0); PLATELET COUNT, AUTOMATED 185 10^3/uL (150-450); RED BLOOD COUNT 3.03 10^6/uL (4.30-6.10); WHITE BLOOD COUNT 3.5 10^3/uL (4.0-10.0)
[2021-02-06 16:56] LABS: ALBUMIN 3.8 GM/DL (3.2-5.2); ALT/SGPT 23 U/L (12-78); BILIRUBIN,TOTAL 0.6 MG/DL (0.2-1.0); BLOOD UREA NITROGEN 13 MG/DL (7-18); CALCIUM LEVEL 8.9 MG/DL (8.5-10.1); CARBON DIOXIDE LEVEL 26 MEQ/L (21-32); CHLORIDE LEVEL 103 MEQ/L (98-107); CHOLESTEROL LEVEL 165 MG/DL (<200); CHOLESTEROL RISK RATIO 3.173 (<5); CREATININE FOR GFR 0.54 MG/DL (0.70-1.30); FERRITIN 350 NG/ML (26-388); GLOMERULAR FILTRATION RATE > 60.0 (>56); GLUCOSE, FASTING 91 MG/DL (70-100); HDL CHOLESTEROL 52 MG/DL (>40); IRON (FE) 138 UG/DL (65-175); LDL CHOLESTEROL 41 MG/DL (<100); MAGNESIUM LEVEL 1.5 MG/DL (1.8-2.4); NON-HDL-C 113 MG/DL; PERCENT SATURATION 38.8 % (19.7-50.0); POTASSIUM SERUM 3.8 MEQ/L (3.5-5.1); SODIUM LEVEL 136 MEQ/L (136-145); TOTAL IRON BINDING CAPACITY 356 UG/DL (250-450); TOTAL PROTEIN 6.7 GM/DL (6.4-8.2); TRIGLYCERIDES LEVEL 360 MG/DL (<150)
[2021-02-06 17:26] LABS: HEMOGLOBIN A1c 4.9 %
== END ==
LOC: M WUC 14:22
PROVIDERS: ATTEND Nurse Practitioner Family
DX: D69.6 Thrombocytopenia, unspecified (principal); D55.0 Anemia due to glucose-6-phosphate dehydrogenase [G6PD] deficiency; E78.1 Pure hyperglyceridemia; K29.70 Gastritis, unspecified, without bleeding; R74.8 Abnormal levels of other serum enzymes; E83.118 Other hemochromatosis; Z79.899 Other long term (current) drug therapy

== ENCOUNTER → 2021-03-04 | Outpatient (CLI) | payer OTHER ==
[2021-03-04 16:50] LABS: BASO # 0.1 10^3/uL (0.0-0.2); BASO % 1.8 % (0.0-1.0); HEMATOCRIT 32.6 % (42.0-52.0); LYMPH # 0.7 10^3/uL (1.5-5.0); LYMPH % 18.2 % (24.0-44.0); MEAN CORPUSCULAR HEMOGLOBIN 34.9 pg (27.0-33.0); MEAN CORPUSCULAR HGB CONC 33.7 g/dl (32.0-36.5); MEAN CORPUSCULAR VOLUME 103.5 fl (80.0-96.0); MONO # 0.9 10^3/uL (0.0-0.8); MONO % 22.3 % (2.0-8.0); NEUTROPHILS # 2.1 10^3/uL (1.5-8.5); NEUTROPHILS % 54.1 % (36.0-66.0); PLATELET COUNT, AUTOMATED 245 10^3/uL (150-450); RED BLOOD COUNT 3.15 10^6/uL (4.30-6.10); WHITE BLOOD COUNT 3.9 10^3/uL (4.0-10.0)
== END ==
LOC: M WUC 14:26
PROVIDERS: ATTEND Internal Medicine Hematology & Oncology
DX: D64.9 Anemia, unspecified (principal); D72.819 Decreased white blood cell count, unspecified; D75.9 Disease of blood and blood-forming organs, unspecified; E83.110 Hereditary hemochromatosis

== ENCOUNTER → 2021-03-04 | Outpatient (CLI) | payer OTHER ==
--- NOTE | 2021-03-05 02:07 | REP ---
INDICATION: WHEEZING COMPARISON: 09/17/2018 TECHNIQUE: PA and lateral. FINDINGS: The mediastinum and cardiac silhouette are normal. The lung medina are clear and without acute consolidation, effusion, or pneumothorax. The skeletal structures are intact and normal. IMPRESSION: No acute cardiopulmonary process. <Electronically signed by Hermelindo Stapleton > 03/05/21 0201
== END ==
LOC: M WUC 14:23
PROVIDERS: ATTEND Nurse Practitioner Family
DX: R06.2 Wheezing (principal)

== ENCOUNTER → 2021-05-17 | Outpatient (CLI) | payer OTHER ==
[~2021-05-17] MED LIST changes: +OMEP40CA4 PO; -OMEP40CA97 PO
[2021-05-17 20:31] LABS: BASO # 0.1 10^3/uL (0.0-0.2); BASO % 1.7 % (0.0-1.0); EOS % 0.7 % (0.0-3.0); HEMATOCRIT 28.9 % (42.0-52.0); HEMOGLOBIN 9.6 g/dl (13.5-17.5); LYMPH # 0.8 10^3/uL (1.5-5.0); LYMPH % 19.2 % (24.0-44.0); MEAN CORPUSCULAR HEMOGLOBIN 35.4 pg (27.0-33.0); MEAN CORPUSCULAR HGB CONC 33.2 g/dl (32.0-36.5); MEAN CORPUSCULAR VOLUME 106.6 fl (80.0-96.0); MONO # 0.8 10^3/uL (0.0-0.8); MONO % 19.7 % (2.0-8.0); NEUTROPHILS # 2.3 10^3/uL (1.5-8.5); NEUTROPHILS % 56.5 % (36.0-66.0); PLATELET COUNT, AUTOMATED 215 10^3/uL (150-450); RED BLOOD COUNT 2.71 10^6/uL (4.30-6.10); WHITE BLOOD COUNT 4.1 10^3/uL (4.0-10.0)
[2021-05-17 20:37] LABS: ALBUMIN 3.7 GM/DL (3.2-5.2); ALT/SGPT 22 U/L (12-78); BILIRUBIN,TOTAL 0.6 MG/DL (0.2-1.0); BLOOD UREA NITROGEN 14 MG/DL (7-18); CALCIUM LEVEL 9.1 MG/DL (8.5-10.1); CARBON DIOXIDE LEVEL 27 MEQ/L (21-32); CHLORIDE LEVEL 107 MEQ/L (98-107); CHOLESTEROL LEVEL 183 MG/DL (<200); CREATININE FOR GFR 0.76 MG/DL (0.70-1.30); FERRITIN 366 NG/ML (26-388); GLOMERULAR FILTRATION RATE > 60.0 (>56); GLUCOSE, FASTING 91 MG/DL (70-100); HDL CHOLESTEROL 60 MG/DL (>40); IRON (FE) 206 UG/DL (65-175); LDL CHOLESTEROL 77 MG/DL (<100); MAGNESIUM LEVEL 1.7 MG/DL (1.8-2.4); NON-HDL-C 123 MG/DL; PERCENT SATURATION 52.2 % (19.7-50.0); SODIUM LEVEL 139 MEQ/L (136-145); TOTAL IRON BINDING CAPACITY 395 UG/DL (250-450); TOTAL PROTEIN 6.6 GM/DL (6.4-8.2); TRIGLYCERIDES LEVEL 230 MG/DL (<150)
== END ==
LOC: M WUC 14:50
PROVIDERS: ATTEND Nurse Practitioner Family
DX: D69.6 Thrombocytopenia, unspecified (principal); D55.0 Anemia due to glucose-6-phosphate dehydrogenase [G6PD] deficiency; E78.1 Pure hyperglyceridemia; K29.70 Gastritis, unspecified, without bleeding; R74.8 Abnormal levels of other serum enzymes; E83.118 Other hemochromatosis; Z79.899 Other long term (current) drug therapy

== ENCOUNTER → 2021-08-17 | Outpatient (CLI) | payer OTHER ==
[~2021-08-17] MED LIST changes: +FENO134C PO; +LOPI600T PO; +SUCR1TAB56 PO
== END ==
LOC: M LABSMTC 10:11
PROVIDERS: ATTEND Anesthesiology
DX: Z01.818 Encounter for other preprocedural examination (principal); Z11.52 Encounter for screening for COVID-19

== ENCOUNTER 2021-08-21 12:32 | Day surgery (SDC) | payer OTHER ==
[~2021-08-21] VITALS: Ht 172.7 cm; Wt 70.8 kg
[~2021-08-21 12:32] MED LIST changes: +CYAN500T14 PO; -DICY20TA11 PO; +DICY20TA20 PO; +GNP99TAB3 PO; +LIDOCAINE 2% 100MG/5ML SDV (FOR ANES.) As Ordered ONE; +NS 1,000 ML IV ONE; -SM P99TA PO; +TURM500C3 PO; +fentaNYL 100 MCG/2 ML INJECTION As Ordered ONE; +propofoL 200 MG/20 ML VIAL As Ordered ONE
[2021-08-21] MEDS ORDERED: propofoL 200 MG/20 ML VIAL As Ordered ONE (14:01)
[2021-08-21 14:23] VITALS: BP 134/62
== END 2021-08-21 14:25 | disposition home or self-care (01) ==
LOC: M OPP 12:32
PROVIDERS: ATTEND Internal Medicine Gastroenterology
DX: K44.9 Diaphragmatic hernia without obstruction or gangrene (principal); R12 Heartburn; R07.89 Other chest pain; I10 Essential (primary) hypertension; E78.5 Hyperlipidemia, unspecified; J44.9 Chronic obstructive pulmonary disease, unspecified; F41.9 Anxiety disorder, unspecified; F32.A Depression, unspecified; Z88.8 Allergy status to other drugs, medicaments and biological substances; Z79.899 Other long term (current) drug therapy
CPT/HCPCS: 43239; 88305; J3010

== ENCOUNTER → 2021-08-29 | Outpatient (CLI) | payer OTHER ==
[~2021-08-29] MED LIST changes: +DICY20TA11 PO; -DICY20TA20 PO; -GNP99TAB3 PO; -LIDOCAINE 2% 100MG/5ML SDV (FOR ANES.) As Ordered ONE; -NS 1,000 ML IV ONE; +SM P99TA PO; -fentaNYL 100 MCG/2 ML INJECTION As Ordered ONE; -propofoL 200 MG/20 ML VIAL As Ordered ONE
[2021-08-29 16:19] LABS: BASO # 0.1 10^3/uL (0.0-0.2); BASO % 0.5 % (0.0-1.0); EOS # 0.1 10^3/uL (0.0-0.5); EOS % 1.2 % (0.0-3.0); HEMATOCRIT 41.8 % (42.0-52.0); HEMOGLOBIN 13.7 g/dl (13.5-17.5); LYMPH # 2.6 10^3/uL (1.5-5.0); LYMPH % 27.1 % (24.0-44.0); MEAN CORPUSCULAR HEMOGLOBIN 30.6 pg (27.0-33.0); MEAN CORPUSCULAR HGB CONC 32.8 g/dl (32.0-36.5); MEAN CORPUSCULAR VOLUME 93.5 fl (80.0-96.0); MONO # 0.8 10^3/uL (0.0-0.8); MONO % 8.5 % (2.0-8.0); NEUTROPHILS % 61.9 % (36.0-66.0); PLATELET COUNT, AUTOMATED 290 10^3/uL (150-450); RED BLOOD COUNT 4.47 10^6/uL (4.30-6.10); WHITE BLOOD COUNT 9.7 10^3/uL (4.0-10.0)
[2021-08-29 16:29] LABS: HEMOGLOBIN A1c 5.3 %
[2021-08-29 16:48] LABS: ALBUMIN 3.8 GM/DL (3.2-5.2); ALT/SGPT 47 U/L (12-78); BILIRUBIN,TOTAL 0.3 MG/DL (0.2-1.0); BLOOD UREA NITROGEN 22 MG/DL (7-18); CALCIUM LEVEL 9.1 MG/DL (8.5-10.1); CARBON DIOXIDE LEVEL 27 MEQ/L (21-32); CHLORIDE LEVEL 102 MEQ/L (98-107); CHOLESTEROL LEVEL 180 MG/DL (<200); CREATININE FOR GFR 1.01 MG/DL (0.70-1.30); FERRITIN 298 NG/ML (26-388); GLOMERULAR FILTRATION RATE > 60.0 (>56); GLUCOSE, FASTING 96 MG/DL (70-100); HDL CHOLESTEROL 36 MG/DL (>40); IRON (FE) 71 UG/DL (65-175); LDL CHOLESTEROL 112 MG/DL (<100); MAGNESIUM LEVEL 1.9 MG/DL (1.8-2.4); NON-HDL-C 144 MG/DL; PERCENT SATURATION 21.6 % (19.7-50.0); POTASSIUM SERUM 4.6 MEQ/L (3.5-5.1); SODIUM LEVEL 134 MEQ/L (136-145); TOTAL IRON BINDING CAPACITY 328 UG/DL (250-450); TOTAL PROTEIN 7.3 GM/DL (6.4-8.2); TRIGLYCERIDES LEVEL 160 MG/DL (<150)
== END ==
LOC: M WUC 13:34
PROVIDERS: ATTEND Nurse Practitioner Family
DX: Z00.01 Encounter for general adult medical examination with abnormal findings (principal); E78.1 Pure hyperglyceridemia; E83.42 Hypomagnesemia; D55.0 Anemia due to glucose-6-phosphate dehydrogenase [G6PD] deficiency; E83.118 Other hemochromatosis; Z13.1 Encounter for screening for diabetes mellitus; Z79.899 Other long term (current) drug therapy

== ENCOUNTER → 2021-12-20 | Outpatient (CLI) | payer OTHER ==
[~2021-12-20] MED LIST changes: -DICY20TA11 PO; +DICY20TA20 PO; -FENO134C PO; +FENO134C16 PO; +GNP99TAB3 PO; -SM P99TA PO
[2021-12-20 15:51] LABS: BASO # 0.1 10^3/uL (0.0-0.2); BASO % 2.1 % (0.0-1.0); EOS # 0.1 10^3/uL (0.0-0.5); EOS % 1.5 % (0.0-3.0); HEMATOCRIT 28.1 % (42.0-52.0); HEMOGLOBIN 9.6 g/dl (13.5-17.5); LYMPH # 0.7 10^3/uL (1.5-5.0); LYMPH % 20.8 % (24.0-44.0); MEAN CORPUSCULAR HGB CONC 34.2 g/dl (32.0-36.5); MEAN CORPUSCULAR VOLUME 105.2 fl (80.0-96.0); MONO # 0.7 10^3/uL (0.0-0.8); MONO % 21.7 % (2.0-8.0); NEUTROPHILS # 1.7 10^3/uL (1.5-8.5); NEUTROPHILS % 50.4 % (36.0-66.0); PLATELET COUNT, AUTOMATED 200 10^3/uL (150-450); RED BLOOD COUNT 2.67 10^6/uL (4.30-6.10); WHITE BLOOD COUNT 3.4 10^3/uL (4.0-10.0)
[2021-12-20 16:16] LABS: ALBUMIN 3.7 GM/DL (3.2-5.2); ALT/SGPT 19 U/L (12-78); BILIRUBIN,TOTAL 0.5 MG/DL (0.2-1.0); BLOOD UREA NITROGEN 14 MG/DL (7-18); CALCIUM LEVEL 9.4 MG/DL (8.5-10.1); CARBON DIOXIDE LEVEL 27 MEQ/L (21-32); CHLORIDE LEVEL 104 MEQ/L (98-107); CHOLESTEROL LEVEL 160 MG/DL (<200); CHOLESTEROL RISK RATIO 2.807 (<5); GLOMERULAR FILTRATION RATE > 60.0 (>56); GLUCOSE, FASTING 97 MG/DL (70-100); HDL CHOLESTEROL 57 MG/DL (>40); IRON (FE) 156 UG/DL (65-175); LDL CHOLESTEROL 50 MG/DL (<100); MAGNESIUM LEVEL 1.9 MG/DL (1.8-2.4); NON-HDL-C 103 MG/DL; PERCENT SATURATION 37.7 % (19.7-50.0); POTASSIUM SERUM 4.2 MEQ/L (3.5-5.1); SODIUM LEVEL 138 MEQ/L (136-145); TOTAL IRON BINDING CAPACITY 414 UG/DL (250-450); TOTAL PROTEIN 6.6 GM/DL (6.4-8.2); TRIGLYCERIDES LEVEL 263 MG/DL (<150)
[2021-12-20 17:01] LABS: HEMOGLOBIN A1c 4.8 %
[2021-12-23 08:46] LABS: FERRITIN 282 NG/ML (26-388)
== END ==
LOC: M WUC 13:37
PROVIDERS: ATTEND Nurse Practitioner Family
DX: Z12.5 Encounter for screening for malignant neoplasm of prostate (principal); I10 Essential (primary) hypertension; E83.119 Hemochromatosis, unspecified

== ENCOUNTER → 2022-01-01 | Outpatient (CLI) | payer OTHER ==
[2022-01-01 16:02] LABS: BASO # 0.1 10^3/uL (0.0-0.2); BASO % 2.2 % (0.0-1.0); EOS % 1.1 % (0.0-3.0); HEMATOCRIT 28.6 % (42.0-52.0); HEMOGLOBIN 9.6 g/dl (13.5-17.5); LYMPH # 0.6 10^3/uL (1.5-5.0); LYMPH % 17.9 % (24.0-44.0); MEAN CORPUSCULAR HEMOGLOBIN 35.7 pg (27.0-33.0); MEAN CORPUSCULAR HGB CONC 33.6 g/dl (32.0-36.5); MEAN CORPUSCULAR VOLUME 106.3 fl (80.0-96.0); MONO # 0.7 10^3/uL (0.0-0.8); MONO % 19.8 % (2.0-8.0); NEUTROPHILS % 54.5 % (36.0-66.0); PLATELET COUNT, AUTOMATED 213 10^3/uL (150-450); RED BLOOD COUNT 2.69 10^6/uL (4.30-6.10); WHITE BLOOD COUNT 3.6 10^3/uL (4.0-10.0)
[2022-01-01 16:36] LABS: ALBUMIN 3.7 GM/DL (3.2-5.2); ALT/SGPT 20 U/L (12-78); BILIRUBIN,TOTAL 0.5 MG/DL (0.2-1.0); BLOOD UREA NITROGEN 12 MG/DL (7-18); CALCIUM LEVEL 9.3 MG/DL (8.5-10.1); CARBON DIOXIDE LEVEL 26 MEQ/L (21-32); CHLORIDE LEVEL 106 MEQ/L (98-107); CREATININE FOR GFR 0.68 MG/DL (0.70-1.30); FERRITIN 260 NG/ML (26-388); GLOMERULAR FILTRATION RATE > 60.0 (>56); GLUCOSE, FASTING 113 MG/DL (70-100); IRON (FE) 117 UG/DL (65-175); LDH LACTATE DEHYDROGENASE 116 U/L (87-241); PERCENT SATURATION 30.1 % (19.7-50.0); POTASSIUM SERUM 4.1 MEQ/L (3.5-5.1); SODIUM LEVEL 140 MEQ/L (136-145); TOTAL IRON BINDING CAPACITY 389 UG/DL (250-450); TOTAL PROTEIN 6.3 GM/DL (6.4-8.2)
[2022-01-01 16:37] LABS: FOLATE > 24.0 NG/ML (>5.4); VITAMIN B12 LEVEL 392 PG/ML (247-911)
== END ==
LOC: M WUC 12:55
PROVIDERS: ATTEND Specialist
DX: D70.8 Other neutropenia (principal)

== ENCOUNTER → 2022-04-15 | Outpatient (CLI) | payer OTHER ==
[~2022-04-15] MED LIST changes: +TUME1CAP PO
[2022-04-15 13:24] LABS: BASO # 0.2 10^3/uL (0.0-0.2); BASO % 1.5 % (0.0-1.0); EOS # 0.1 10^3/uL (0.0-0.5); EOS % 1.2 % (0.0-3.0); HEMATOCRIT 32.2 % (42.0-52.0); LYMPH # 0.8 10^3/uL (1.5-5.0); LYMPH % 7.7 % (24.0-44.0); MEAN CORPUSCULAR HEMOGLOBIN 35.5 pg (27.0-33.0); MEAN CORPUSCULAR HGB CONC 34.2 g/dl (32.0-36.5); MEAN CORPUSCULAR VOLUME 103.9 fl (80.0-96.0); MONO % 19.5 % (2.0-8.0); NEUTROPHILS # 6.7 10^3/uL (1.5-8.5); NEUTROPHILS % 67.8 % (36.0-66.0); PLATELET COUNT, AUTOMATED 308 10^3/uL (150-450)
[2022-04-15 14:29] LABS: MONO # 1.9 10^3/uL (0.0-0.8)
== END ==
LOC: M WUC 11:48
DX: D64.9 Anemia, unspecified (principal); R06.02 Shortness of breath; R05.9 Cough, unspecified

== ENCOUNTER → 2022-05-07 | Outpatient (CLI) | payer OTHER ==
[2022-05-07 15:29] LABS: BASO # 0.1 10^3/uL (0.0-0.2); BASO % 1.8 % (0.0-1.0); EOS # 0.1 10^3/uL (0.0-0.5); EOS % 2.4 % (0.0-3.0); HEMATOCRIT 27.1 % (42.0-52.0); HEMOGLOBIN 8.9 g/dl (13.5-17.5); LYMPH # 0.6 10^3/uL (1.5-5.0); LYMPH % 18.7 % (24.0-44.0); MEAN CORPUSCULAR HEMOGLOBIN 34.8 pg (27.0-33.0); MEAN CORPUSCULAR HGB CONC 32.8 g/dl (32.0-36.5); MEAN CORPUSCULAR VOLUME 105.9 fl (80.0-96.0); MONO # 0.5 10^3/uL (0.0-0.8); MONO % 13.8 % (2.0-8.0); NEUTROPHILS % 60.9 % (36.0-66.0); PLATELET COUNT, AUTOMATED 127 10^3/uL (150-450); RED BLOOD COUNT 2.56 10^6/uL (4.30-6.10); WHITE BLOOD COUNT 3.3 10^3/uL (4.0-10.0)
[2022-05-07 15:55] LABS: HEMOGLOBIN A1c 5.3 %
[2022-05-07 16:48] LABS: ALBUMIN 3.4 GM/DL (3.2-5.2); ALT/SGPT 14 U/L (12-78); BILIRUBIN,TOTAL 0.4 MG/DL (0.2-1.0); BLOOD UREA NITROGEN 17 MG/DL (7-18); CALCIUM LEVEL 8.7 MG/DL (8.5-10.1); CARBON DIOXIDE LEVEL 27 MEQ/L (21-32); CHLORIDE LEVEL 104 MEQ/L (98-107); CHOLESTEROL LEVEL 123 MG/DL (<200); CREATININE FOR GFR 0.69 MG/DL (0.70-1.30); FERRITIN 282 NG/ML (26-388); GLOMERULAR FILTRATION RATE > 60.0 (>56); GLUCOSE, FASTING 85 MG/DL (70-100); HDL CHOLESTEROL 60 MG/DL (>40); IRON (FE) 116 UG/DL (65-175); LDL CHOLESTEROL 51 MG/DL (<100); MAGNESIUM LEVEL 1.6 MG/DL (1.8-2.4); NON-HDL-C 63 MG/DL; PERCENT SATURATION 30.1 % (19.7-50.0); POTASSIUM SERUM 4.4 MEQ/L (3.5-5.1); SODIUM LEVEL 137 MEQ/L (136-145); TOTAL IRON BINDING CAPACITY 386 UG/DL (250-450); TRIGLYCERIDES LEVEL 61 MG/DL (<150)
== END ==
LOC: M WUC 11:01
PROVIDERS: ATTEND Nurse Practitioner Family
DX: E83.119 Hemochromatosis, unspecified (principal)

== ENCOUNTER → 2022-08-26 | Outpatient (CLI) | payer OTHER ==
[~2022-08-26] MED LIST changes: -FENO134C16 PO; +FENO134C20 PO
[2022-08-26 16:56] LABS: HEMOGLOBIN 9.9 g/dl (13.5-17.5); MEAN CORPUSCULAR HEMOGLOBIN 36.4 pg (27.0-33.0); MEAN CORPUSCULAR VOLUME 110.3 fl (80.0-96.0); PLATELET COUNT, AUTOMATED 191 10^3/uL (150-450); RED BLOOD COUNT 2.72 10^6/uL (4.30-6.10); WHITE BLOOD COUNT 2.9 10^3/uL (4.0-10.0)
[2022-08-26 17:55] LABS: BASOPHILS 7 % (0-1); LYMPHOCYTES 29 % (16-44); METAMYELOCYTES 1 % (0-0); MONOCYTES 9 % (0-5); NEUTROPHILS 54 % (28-66); PLATELET ESTIMATE NORMAL (NORMAL)
[2022-08-26 17:56] LABS: MAGNESIUM LEVEL 1.8 MG/DL (1.8-2.4)
[2022-08-26 17:57] LABS: ALBUMIN 3.9 G/DL (3.2-5.2); ALKALINE PHOSPHATASE 35 U/L (46-116); ALT/SGPT 11 U/L (7.0-40); AST/SGOT 15 U/L (<34); BILIRUBIN,TOTAL 0.4 MG/DL (0.3-1.2); BLOOD UREA NITROGEN 15 MG/DL (9-23); CALCIUM LEVEL 9.3 MG/DL (8.5-10.1); CARBON DIOXIDE LEVEL 26 MMOL/L (20-31); CHLORIDE LEVEL 103 MMOL/L (98-107); CHOLESTEROL LEVEL 142 MG/DL (<200); CHOLESTEROL RISK RATIO 2.25 (<5); CREATININE FOR GFR 0.64 MG/DL (0.70-1.30); GLOMERULAR FILTRATION RATE > 60.0 (>56); GLUCOSE, FASTING 98 MG/DL (60-100); IRON (FE) 170 UG/DL (65-175); LDL CHOLESTEROL 55.6 MG/DL (<100); NON-HDL-C 79 MG/DL; PERCENT SATURATION 42.8 % (19.7-50.0); POTASSIUM SERUM 4.6 MMOL/L (3.5-5.1); SODIUM LEVEL 138 MMOL/L (136-145); TOTAL IRON BINDING CAPACITY 397 UG/DL (250-425); TOTAL PROTEIN 6.4 G/DL (5.7-8.2); TRIGLYCERIDES LEVEL 117 MG/DL (<150)
[2022-08-26 18:00] LABS: FERRITIN 236.2 NG/ML (10.5-307.3)
[2022-08-26 18:01] LABS: THYROID STIMULATING HORMONE 1.231 uIU/ML (0.55-4.78)
[2022-08-26 18:02] LABS: VITAMIN B12 LEVEL 426 PG/ML (211-911)
== END ==
LOC: M WUC 10:55
PROVIDERS: ATTEND Nurse Practitioner Family
DX: Z00.00 Encounter for general adult medical examination without abnormal findings (principal); Z13.1 Encounter for screening for diabetes mellitus; I10 Essential (primary) hypertension; E78.1 Pure hyperglyceridemia; E83.42 Hypomagnesemia; D64.9 Anemia, unspecified; Z13.29 Encounter for screening for other suspected endocrine disorder; R22.43 Localized swelling, mass and lump, lower limb, bilateral

== ENCOUNTER → 2022-09-11 | Outpatient (CLI) | payer OTHER | LOC: M WUC 11:02 | PROVIDERS: ATTEND Orthopaedic Surgery | DX: M75.102 Unspecified rotator cuff tear or rupture of left shoulder, not specified as traumatic (principal) ==

== ENCOUNTER → 2022-11-20 | Outpatient (REF) | payer OTHER ==
[2022-11-20 14:53] LABS: BASO # 0.1 10^3/uL (0.0-0.2); EOS # 0.1 10^3/uL (0.0-0.5); EOS % 1.4 % (0.0-3.0); HEMATOCRIT 30.3 % (42.0-52.0); HEMOGLOBIN 10.5 g/dl (13.5-17.5); LYMPH # 0.9 10^3/uL (1.5-5.0); LYMPH % 14.4 % (24.0-44.0); MEAN CORPUSCULAR HEMOGLOBIN 36.3 pg (27.0-33.0); MEAN CORPUSCULAR HGB CONC 34.7 g/dl (32.0-36.5); MEAN CORPUSCULAR VOLUME 104.8 fl (80.0-96.0); MONO # 1.2 10^3/uL (0.0-0.8); MONO % 20.1 % (2.0-8.0); NEUTROPHILS # 3.5 10^3/uL (1.5-8.5); NEUTROPHILS % 58.7 % (36.0-66.0); PLATELET COUNT, AUTOMATED 226 10^3/uL (150-450); RED BLOOD COUNT 2.89 10^6/uL (4.30-6.10); WHITE BLOOD COUNT 5.9 10^3/uL (4.0-10.0)
[2022-11-20 15:20] LABS: FERRITIN 500.8 NG/ML (10.5-307.3); THYROID STIMULATING HORMONE 1.056 uIU/ML (0.55-4.78)
[2022-11-20 15:23] LABS: TOTAL IRON BINDING CAPACITY 356 UG/DL (250-425); VITAMIN B12 LEVEL 666 PG/ML (211-911)
[2022-11-20 15:24] LABS: ALKALINE PHOSPHATASE 47 U/L (46-116); ALT/SGPT 13 U/L (7.0-40); AST/SGOT 16 U/L (<34); BILIRUBIN,TOTAL 0.8 MG/DL (0.3-1.2); BLOOD UREA NITROGEN 11 MG/DL (9-23); CALCIUM LEVEL 9.1 MG/DL (8.5-10.1); CARBON DIOXIDE LEVEL 27 MMOL/L (20-31); CHLORIDE LEVEL 98 MMOL/L (98-107); CHOLESTEROL LEVEL 160 MG/DL (<200); CHOLESTEROL RISK RATIO 2.82 (<5); GLOMERULAR FILTRATION RATE > 60.0 (>56); GLUCOSE, FASTING 97 MG/DL (60-100); HDL CHOLESTEROL 56.7 MG/DL (>40); IRON (FE) 237 UG/DL (65-175); LDL CHOLESTEROL 38.1 MG/DL (<100); MAGNESIUM LEVEL 1.7 MG/DL (1.8-2.4); NON-HDL-C 103 MG/DL; PERCENT SATURATION 66.6 % (19.7-50.0); POTASSIUM SERUM 4.2 MMOL/L (3.5-5.1); SODIUM LEVEL 134 MMOL/L (136-145); TOTAL PROTEIN 6.6 G/DL (5.7-8.2); TRIGLYCERIDES LEVEL 326 MG/DL (<150)
== END ==
LOC: M LABWUC 14:09
PROVIDERS: ATTEND Nurse Practitioner Family
DX: Z00.01 Encounter for general adult medical examination with abnormal findings (principal); I10 Essential (primary) hypertension; E78.1 Pure hyperglyceridemia; E83.42 Hypomagnesemia; D64.9 Anemia, unspecified; Z13.29 Encounter for screening for other suspected endocrine disorder; D51.9 Vitamin B12 deficiency anemia, unspecified

== ENCOUNTER → 2022-12-23 | Outpatient (CLI) | payer OTHER ==
[2022-12-23 17:49] LABS: ALBUMIN 3.9 G/DL (3.2-5.2); ALKALINE PHOSPHATASE 47 U/L (46-116); ALT/SGPT 11 U/L (7.0-40); AST/SGOT 16 U/L (<34); BILIRUBIN,TOTAL 0.7 MG/DL (0.3-1.2); BLOOD UREA NITROGEN 16 MG/DL (9-23); CALCIUM LEVEL 9.5 MG/DL (8.5-10.1); CARBON DIOXIDE LEVEL 28 MMOL/L (20-31); CHLORIDE LEVEL 98 MMOL/L (98-107); CREATININE FOR GFR 0.69 MG/DL (0.70-1.30); GLOMERULAR FILTRATION RATE > 60.0 (>56); GLUCOSE, FASTING 94 MG/DL (60-100); MAGNESIUM LEVEL 1.7 MG/DL (1.8-2.4); POTASSIUM SERUM 4.8 MMOL/L (3.5-5.1); SODIUM LEVEL 132 MMOL/L (136-145); TOTAL PROTEIN 6.3 G/DL (5.7-8.2)
== END ==
LOC: M WUC 13:11
DX: E87.1 Hypo-osmolality and hyponatremia (principal); E83.42 Hypomagnesemia

== ENCOUNTER → 2023-02-24 | Outpatient (CLI) | payer OTHER ==
[2023-02-24 18:35] LABS: BASO # 0.1 10^3/uL (0.0-0.2); BASO % 2.5 % (0.0-1.0); EOS # 0.1 10^3/uL (0.0-0.5); HEMATOCRIT 30.8 % (42.0-52.0); HEMOGLOBIN 10.2 g/dl (13.5-17.5); LYMPH # 0.8 10^3/uL (1.5-5.0); LYMPH % 18.7 % (24.0-44.0); MEAN CORPUSCULAR HEMOGLOBIN 35.2 pg (27.0-33.0); MEAN CORPUSCULAR HGB CONC 33.1 g/dl (32.0-36.5); MEAN CORPUSCULAR VOLUME 106.2 fl (80.0-96.0); MONO # 0.9 10^3/uL (0.0-0.8); MONO % 22.4 % (2.0-8.0); NEUTROPHILS % 49.7 % (36.0-66.0); PLATELET COUNT, AUTOMATED 264 10^3/uL (150-450); WHITE BLOOD COUNT 4.1 10^3/uL (4.0-10.0)
[2023-02-24 19:09] LABS: ALBUMIN 3.9 G/DL (3.2-5.2); ALKALINE PHOSPHATASE 56 U/L (46-116); ALT/SGPT 11 U/L (7.0-40); AST/SGOT 13 U/L (<34); BILIRUBIN,TOTAL 0.6 MG/DL (0.3-1.2); BLOOD UREA NITROGEN 12 MG/DL (9-23); CALCIUM LEVEL 9.1 MG/DL (8.5-10.1); CARBON DIOXIDE LEVEL 28 MMOL/L (20-31); CHLORIDE LEVEL 102 MMOL/L (98-107); CHOLESTEROL LEVEL 162 MG/DL (<200); CHOLESTEROL RISK RATIO 2.57 (<5); CREATININE FOR GFR 0.66 MG/DL (0.70-1.30); GLOMERULAR FILTRATION RATE > 60.0 (>56); GLUCOSE, FASTING 83 MG/DL (60-100); HDL CHOLESTEROL 62.8 MG/DL (>40); IRON (FE) 78 UG/DL (65-175); LDL CHOLESTEROL 66.6 MG/DL (<100); MAGNESIUM LEVEL 1.6 MG/DL (1.8-2.4); NON-HDL-C 99.2 MG/DL; POTASSIUM SERUM 4.3 MMOL/L (3.5-5.1); SODIUM LEVEL 135 MMOL/L (136-145); THYROID STIMULATING HORMONE 1.522 uIU/ML (0.55-4.78); TOTAL IRON BINDING CAPACITY 355 UG/DL (250-425); TOTAL PROTEIN 6.4 G/DL (5.7-8.2); TRIGLYCERIDES LEVEL 163 MG/DL (<150)
[2023-02-24 19:11] LABS: VITAMIN B12 LEVEL 398 PG/ML (211-911)
== END ==
LOC: M WUC 15:05
PROVIDERS: ATTEND Internal Medicine Cardiovascular Disease
DX: Z00.01 Encounter for general adult medical examination with abnormal findings (principal); I10 Essential (primary) hypertension; E78.1 Pure hyperglyceridemia; E83.42 Hypomagnesemia; Z13.29 Encounter for screening for other suspected endocrine disorder; D51.9 Vitamin B12 deficiency anemia, unspecified

== ENCOUNTER → 2023-05-08 | Outpatient (CLI) | payer OTHER ==
[2023-05-08 13:11] LABS: BASO # 0.1 10^3/uL (0.0-0.2); BASO % 2.3 % (0.0-1.0); EOS # 0.2 10^3/uL (0.0-0.5); EOS % 3.5 % (0.0-3.0); HEMATOCRIT 33.3 % (42.0-52.0); HEMOGLOBIN 11.3 g/dl (13.5-17.5); LYMPH # 0.9 10^3/uL (1.5-5.0); LYMPH % 20.3 % (24.0-44.0); MEAN CORPUSCULAR HEMOGLOBIN 35.4 pg (27.0-33.0); MEAN CORPUSCULAR HGB CONC 33.9 g/dl (32.0-36.5); MEAN CORPUSCULAR VOLUME 104.4 fl (80.0-96.0); MONO # 0.7 10^3/uL (0.0-0.8); MONO % 16.6 % (2.0-8.0); NEUTROPHILS # 2.4 10^3/uL (1.5-8.5); NEUTROPHILS % 54.3 % (36.0-66.0); PLATELET COUNT, AUTOMATED 204 10^3/uL (150-450); RED BLOOD COUNT 3.19 10^6/uL (4.30-6.10); WHITE BLOOD COUNT 4.3 10^3/uL (4.0-10.0)
[2023-05-08 13:41] LABS: THYROID STIMULATING HORMONE 0.967 uIU/ML (0.55-4.78); TOTAL IRON BINDING CAPACITY 311 UG/DL (250-425)
[2023-05-08 13:42] LABS: ALKALINE PHOSPHATASE 45 U/L (46-116); ALT/SGPT 19 U/L (7.0-40); AST/SGOT 16 U/L (<34); BILIRUBIN,TOTAL 0.7 MG/DL (0.3-1.2); BLOOD UREA NITROGEN 11 MG/DL (9-23); CALCIUM LEVEL 9.2 MG/DL (8.5-10.1); CARBON DIOXIDE LEVEL 27 MMOL/L (20-31); CHLORIDE LEVEL 100 MMOL/L (98-107); CHOLESTEROL LEVEL 142 MG/DL (<200); CREATININE FOR GFR 0.57 MG/DL (0.70-1.30); FERRITIN 253.7 NG/ML (10.5-307.3); GLOMERULAR FILTRATION RATE > 60.0 (>56); GLUCOSE, FASTING 92 MG/DL (60-100); HDL CHOLESTEROL 74.4 MG/DL (>40); IRON (FE) 174 UG/DL (65-175); LDL CHOLESTEROL 49.4 MG/DL (<100); MAGNESIUM LEVEL 1.7 MG/DL (1.8-2.4); NON-HDL-C 67.6 MG/DL; PERCENT SATURATION 55.9 % (19.7-50.0); POTASSIUM SERUM 4.7 MMOL/L (3.5-5.1); SODIUM LEVEL 135 MMOL/L (136-145); TOTAL PROTEIN 6.4 G/DL (5.7-8.2); TRIGLYCERIDES LEVEL 91 MG/DL (<150); VITAMIN B12 LEVEL 702 PG/ML (211-911)
== END ==
LOC: M WUC 10:29
PROVIDERS: ATTEND Registered Nurse Community Health
DX: Z00.01 Encounter for general adult medical examination with abnormal findings (principal); I10 Essential (primary) hypertension; E78.1 Pure hyperglyceridemia; E83.42 Hypomagnesemia; D51.9 Vitamin B12 deficiency anemia, unspecified

== ENCOUNTER → 2023-07-31 | Outpatient (CLI) | payer OTHER ==
[2023-07-31 11:55] LABS: BASO # 0.1 10^3/uL (0.0-0.2); BASO % 1.6 % (0.0-1.0); EOS # 0.1 10^3/uL (0.0-0.5); HEMATOCRIT 32.3 % (42.0-52.0); HEMOGLOBIN 11.2 g/dl (13.5-17.5); LYMPH # 0.7 10^3/uL (1.5-5.0); LYMPH % 13.3 % (24.0-44.0); MEAN CORPUSCULAR HEMOGLOBIN 36.5 pg (27.0-33.0); MEAN CORPUSCULAR HGB CONC 34.7 g/dl (32.0-36.5); MEAN CORPUSCULAR VOLUME 105.2 fl (80.0-96.0); MONO # 0.8 10^3/uL (0.0-0.8); MONO % 15.7 % (2.0-8.0); NEUTROPHILS # 3.2 10^3/uL (1.5-8.5); NEUTROPHILS % 64.5 % (36.0-66.0); PLATELET COUNT, AUTOMATED 214 10^3/uL (150-450); RED BLOOD COUNT 3.07 10^6/uL (4.30-6.10); WHITE BLOOD COUNT 4.9 10^3/uL (4.0-10.0)
[2023-07-31 12:32] LABS: TOTAL IRON BINDING CAPACITY 300 UG/DL (250-425)
[2023-07-31 12:34] LABS: PROSTATIC SPECIFIC AG MONITOR 0.68 NG/ML (< 4.00)
[2023-07-31 12:35] LABS: ALBUMIN 3.9 G/DL (3.2-5.2); ALKALINE PHOSPHATASE 41 U/L (46-116); ALT/SGPT 17 U/L (7.0-40); AST/SGOT 14 U/L (<34); BILIRUBIN,TOTAL 0.7 MG/DL (0.3-1.2); BLOOD UREA NITROGEN 17 MG/DL (9-23); CALCIUM LEVEL 9.2 MG/DL (8.5-10.1); CARBON DIOXIDE LEVEL 29 MMOL/L (20-31); CHLORIDE LEVEL 100 MMOL/L (98-107); CHOLESTEROL LEVEL 176 MG/DL (<200); CHOLESTEROL RISK RATIO 2.72 (<5); CREATININE FOR GFR 0.54 MG/DL (0.70-1.30); GLOMERULAR FILTRATION RATE > 60.0 (>56); GLUCOSE, FASTING 97 MG/DL (60-100); HDL CHOLESTEROL 64.7 MG/DL (>40); IRON (FE) 145 UG/DL (65-175); LDL CHOLESTEROL 81.5 MG/DL (<100); MAGNESIUM LEVEL 1.8 MG/DL (1.8-2.4); NON-HDL-C 111.3 MG/DL; PERCENT SATURATION 48.3 % (19.7-50.0); POTASSIUM SERUM 4.2 MMOL/L (3.5-5.1); SODIUM LEVEL 136 MMOL/L (136-145); TOTAL PROTEIN 6.5 G/DL (5.7-8.2); TRIGLYCERIDES LEVEL 149 MG/DL (<150)
[2023-07-31 12:37] LABS: FERRITIN 296.2 NG/ML (10.5-307.3)
[2023-07-31 12:38] LABS: FOLATE > 24.00 NG/ML (>5.4)
[2023-07-31 12:40] LABS: VITAMIN B12 LEVEL 574 PG/ML (211-911)
== END ==
LOC: M WUC 10:19
PROVIDERS: ATTEND Registered Nurse
DX: D64.9 Anemia, unspecified (principal); E87.6 Hypokalemia; E83.42 Hypomagnesemia; E83.118 Other hemochromatosis; Z12.5 Encounter for screening for malignant neoplasm of prostate; I10 Essential (primary) hypertension; E87.1 Hypo-osmolality and hyponatremia

== ENCOUNTER → 2023-10-30 | Outpatient (CLI) | payer OTHER ==
[2023-10-30 18:40] LABS: BASO # 0.1 10^3/uL (0.0-0.2); BASO % 1.8 % (0.0-1.0); EOS # 0.2 10^3/uL (0.0-0.5); EOS % 4.5 % (0.0-3.0); HEMATOCRIT 33.4 % (42.0-52.0); HEMOGLOBIN 11.4 g/dl (13.5-17.5); LYMPH # 0.8 10^3/uL (1.5-5.0); LYMPH % 23.9 % (24.0-44.0); MEAN CORPUSCULAR HEMOGLOBIN 35.8 pg (27.0-33.0); MEAN CORPUSCULAR HGB CONC 34.1 g/dl (32.0-36.5); MONO # 0.5 10^3/uL (0.0-0.8); MONO % 15.8 % (2.0-8.0); NEUTROPHILS # 1.7 10^3/uL (1.5-8.5); NEUTROPHILS % 50.4 % (36.0-66.0); PLATELET COUNT, AUTOMATED 181 10^3/uL (150-450); RED BLOOD COUNT 3.18 10^6/uL (4.30-6.10); WHITE BLOOD COUNT 3.3 10^3/uL (4.0-10.0)
[2023-10-30 18:56] LABS: ALKALINE PHOSPHATASE 41 U/L (46-116); ALT/SGPT 17 U/L (7.0-40); AST/SGOT 15 U/L (<34); BILIRUBIN,TOTAL 0.7 MG/DL (0.3-1.2); BLOOD UREA NITROGEN 13 MG/DL (9-23); CALCIUM LEVEL 9.3 MG/DL (8.5-10.1); CARBON DIOXIDE LEVEL 28 MMOL/L (20-31); CHLORIDE LEVEL 99 MMOL/L (98-107); CHOLESTEROL LEVEL 173 MG/DL (<200); CHOLESTEROL RISK RATIO 2.42 (<5); CREATININE FOR GFR 0.56 MG/DL (0.70-1.30); GLOMERULAR FILTRATION RATE > 60.0 (>56); GLUCOSE, FASTING 97 MG/DL (60-100); HDL CHOLESTEROL 71.4 MG/DL (>40); LDL CHOLESTEROL 77.4 MG/DL (<100); MAGNESIUM LEVEL 1.7 MG/DL (1.8-2.4); NON-HDL-C 101.6 MG/DL; POTASSIUM SERUM 4.2 MMOL/L (3.5-5.1); SODIUM LEVEL 133 MMOL/L (136-145); TOTAL PROTEIN 6.3 G/DL (5.7-8.2); TRIGLYCERIDES LEVEL 121 MG/DL (<150)
== END ==
LOC: M WUC 10:09
PROVIDERS: ATTEND Registered Nurse
DX: D64.9 Anemia, unspecified (principal); I10 Essential (primary) hypertension; E83.42 Hypomagnesemia; R25.2 Cramp and spasm; E78.1 Pure hyperglyceridemia

== ENCOUNTER → 2023-11-25 | Outpatient (CLI) | payer OTHER | LOC: M WUC 14:19 | PROVIDERS: ATTEND Registered Nurse | DX: R07.89 Other chest pain (principal) ==

== ENCOUNTER → 2024-04-06 | Outpatient (CLI) | payer OTHER | LOC: M WUC 13:12 | PROVIDERS: ATTEND Registered Nurse | DX: M19.071 Primary osteoarthritis, right ankle and foot (principal); M19.072 Primary osteoarthritis, left ankle and foot; M25.561 Pain in right knee; M77.31 Calcaneal spur, right foot; M77.32 Calcaneal spur, left foot; I70.291 Other atherosclerosis of native arteries of extremities, right leg ==

== ENCOUNTER → 2024-07-07 | Outpatient (CLI) | payer OTHER ==
[2024-07-07 18:43] LABS: HEMATOCRIT 30.6 % (42.0-52.0); HEMOGLOBIN 10.3 g/dl (13.5-17.5); MEAN CORPUSCULAR HEMOGLOBIN 35.6 pg (27.0-33.0); MEAN CORPUSCULAR HGB CONC 33.7 g/dl (32.0-36.5); MEAN CORPUSCULAR VOLUME 105.9 fl (80.0-96.0); PLATELET COUNT, AUTOMATED 141 10^3/uL (150-450); RED BLOOD COUNT 2.89 10^6/uL (4.30-6.10); WHITE BLOOD COUNT 3.4 10^3/uL (4.0-10.0)
[2024-07-07 19:29] LABS: TOTAL IRON BINDING CAPACITY 284 UG/DL (250-425)
[2024-07-07 19:31] LABS: ALBUMIN 3.5 G/DL (3.2-5.2); ALKALINE PHOSPHATASE 42 U/L (46-116); ALT/SGPT 19 U/L (7.0-40); AST/SGOT 13 U/L (<34); BILIRUBIN,TOTAL 0.6 MG/DL (0.3-1.2); BLOOD UREA NITROGEN 11 MG/DL (9-23); CARBON DIOXIDE LEVEL 25 MMOL/L (20-31); CHLORIDE LEVEL 105 MMOL/L (98-107); CHOLESTEROL LEVEL 142 MG/DL (<200); CHOLESTEROL RISK RATIO 2.02 (<5); GLOMERULAR FILTRATION RATE > 60.0 (>56); GLUCOSE, FASTING 95 MG/DL (60-100); HDL CHOLESTEROL 70.1 MG/DL (>40); IRON (FE) 192 UG/DL (65-175); LDL CHOLESTEROL 59.9 MG/DL (<100); MAGNESIUM LEVEL 1.4 MG/DL (1.8-2.4); NON-HDL-C 71.9 MG/DL; PERCENT SATURATION 67.6 % (19.7-50.0); SODIUM LEVEL 135 MMOL/L (136-145); TRIGLYCERIDES LEVEL 60 MG/DL (<150)
[2024-07-07 19:39] LABS: FERRITIN 239.5 NG/ML (10.5-307.3)
[2024-07-07 19:41] LABS: FOLATE 23.51 NG/ML (>5.4); TOTAL 25(OH) VITAMIN D 34.9 NG/ML (20.0-100.0)
== END ==
LOC: M WUC 11:17
PROVIDERS: ATTEND Registered Nurse
DX: I10 Essential (primary) hypertension (principal); D64.9 Anemia, unspecified; E83.42 Hypomagnesemia; E78.1 Pure hyperglyceridemia; E55.9 Vitamin D deficiency, unspecified

== ENCOUNTER → 2024-07-07 | Outpatient (CLI) | payer OTHER ==
[2024-07-07 19:41] LABS: FOLATE 23.39 NG/ML (>5.4)
== END ==
LOC: M WUC 11:21
PROVIDERS: ATTEND Physician Assistant
DX: I70.245 Atherosclerosis of native arteries of left leg with ulceration of other part of foot (principal)

== ENCOUNTER → 2024-07-20 | Outpatient (CLI) | payer OTHER | LOC: M WUC 15:04 | PROVIDERS: ATTEND Registered Nurse | DX: J06.9 Acute upper respiratory infection, unspecified (principal) ==

== ENCOUNTER → 2024-08-30 | Outpatient (CLI) | payer OTHER | LOC: M EKG 14:07 | PROVIDERS: ATTEND Registered Nurse | DX: Z01.818 Encounter for other preprocedural examination (principal) ==

== ENCOUNTER → 2024-08-30 | Outpatient (REF) | payer OTHER ==
[2024-08-30 19:16] LABS: BLOOD UREA NITROGEN 9 MG/DL (9-23); CALCIUM LEVEL 9.5 MG/DL (8.5-10.1); CARBON DIOXIDE LEVEL 30 MMOL/L (20-31); CHLORIDE LEVEL 94 MMOL/L (98-107); CREATININE FOR GFR 0.49 MG/DL (0.70-1.30); GLOMERULAR FILTRATION RATE > 60.0 (>56); GLUCOSE, FASTING 95 MG/DL (60-100); POTASSIUM SERUM 4.1 MMOL/L (3.5-5.1); SODIUM LEVEL 132 MMOL/L (136-145)
== END ==
LOC: M LABWUC 16:35
PROVIDERS: ATTEND Registered Nurse
DX: E87.1 Hypo-osmolality and hyponatremia (principal)

== ENCOUNTER → 2024-10-14 | Outpatient (CLI) | payer OTHER | LOC: M WUC 12:13 | PROVIDERS: ATTEND Registered Nurse | DX: M25.561 Pain in right knee (principal) ==

== ENCOUNTER → 2024-11-09 | Outpatient (REF) | payer OTHER ==
[2024-11-09 17:21] LABS: BLOOD UREA NITROGEN 15 MG/DL (9-23); CREATININE FOR GFR 0.52 MG/DL (0.70-1.30); GLOMERULAR FILTRATION RATE > 60.0 (>56)
== END ==
LOC: M LABWUC 16:22
PROVIDERS: ATTEND Physician Assistant
DX: I73.9 Peripheral vascular disease, unspecified (principal)

== ENCOUNTER 2025-01-04 20:18 | Emergency (ER) | payer OTHER ==
[~2025-01-04] VITALS: Ht 172.7 cm; Wt 71.8 kg
[2025-01-04 20:21] VITALS: TEMP 98.6
[2025-01-04 21:15] VITALS: BP 134/75
[2025-01-04 21:18] VITALS: O2SAT 99
== END 2025-01-04 22:13 | disposition left against medical advice (07) ==
LOC: M ED 20:18
DX: Z53.21 Procedure and treatment not carried out due to patient leaving prior to being seen by health care provider (principal)

== ENCOUNTER → 2025-05-29 | Outpatient (CLI) | payer OTHER ==
[~2025-05-29] MED LIST changes: +LISI40TA10 PO; -LISI40TA4 PO; +TURM1CAP7 PO; -TURM500C3 PO
[2025-05-29 12:35] LABS: PLATELET COUNT, AUTOMATED 168 10^3/uL (150-450)
[2025-05-29 12:57] LABS: ESTIMATED AVERAGE GLUCOSE 105.0 MG/DL (60-110)
[2025-05-29 13:15] LABS: ALT/SGPT 36 U/L (7.0-40); AST/SGOT 22 U/L (<34); CALCIUM LEVEL 9.2 MG/DL (8.3-10.6); CARBON DIOXIDE LEVEL 27 MMOL/L (20-31); CHLORIDE LEVEL 104 MMOL/L (98-107); CHOLESTEROL LEVEL 125 MG/DL (<200); CHOLESTEROL RISK RATIO 2.75 (<5); CREATININE FOR GFR 0.60 MG/DL (0.70-1.30); GLOMERULAR FILTRATION RATE > 90.0 (>49); LDL CHOLESTEROL 59.0 MG/DL (<100); MAGNESIUM LEVEL 2.2 MG/DL (1.8-2.4); NON-HDL-C 79.6 MG/DL; POTASSIUM SERUM 4.3 MMOL/L (3.5-5.1); SODIUM LEVEL 139 MMOL/L (136-145); TRIGLYCERIDES LEVEL 103 MG/DL (<150)
[2025-05-29 13:16] LABS: TOTAL 25(OH) VITAMIN D 24.9 NG/ML (20.0-100.0)
[2025-05-29 13:17] LABS: FREE T4 1.30 NG/DL (0.89-1.76); VITAMIN B12 LEVEL 665 PG/ML (211-911)
== END ==
LOC: M WUC 08:13
PROVIDERS: ATTEND Registered Nurse
DX: E83.42 Hypomagnesemia (principal)

== ENCOUNTER → 2025-05-30 | Outpatient (CLI) | payer OTHER ==
[2025-05-30 19:20] LABS: C REACTIVE PROTEIN QUANTITATIV < 0.50 MG/DL (<1.0); RHEUMATOID FACTOR QUANT 5.1 IU/ML (<14)
== END ==
LOC: M WUC 13:53
PROVIDERS: ATTEND Registered Nurse
DX: M13.0 Polyarthritis, unspecified (principal)